=== PATIENT | female | born 1965 | race Caucasian/White ===

== ENCOUNTER 2016-04-30 08:48 | Emergency (ER) | payer OTHER ==
--- NOTE | 2016-04-30 09:10 | ERNOTE ---
<Georgi Tran - Last Filed: 04/30/16 08:58> Abdominal HPI - General Chief Complaint: GI Bleed Time Seen by Provider: 04/30/16 08:56 Source: group home records Exam Limitations: clinical condition, physical impairment - Immun/Allergies/Home Medications Allergies/Adverse Reactions: Allergies No Known Allergies Allergy (Unverified 04/30/16 09:01) Home Medications: HOME MEDICATIONS Albuterol Sulfate/Ipratropium [Duoneb 2.5-0.5MG/3ML Soln] 3 ml IH QID 04/30/16 [ Last Taken Unknown] Amitriptyline HCl [Elavil] 10 mg PO HS 04/30/16 [Last Taken Unknown] Fluticasone Propionate [24 Hour Allergy Relief] 15.8 ml NS DAILY 04/30/16 [Last Taken Unknown] Levothyroxine Sodium [Synthroid] 50 mcg PO DAILY 04/30/16 [Last Taken Unknown] Metoclopramide HCl [Reglan] 10 mg PO QID 04/30/16 [Last Taken Unknown] Omeprazole [Prilosec] 4 mg PO DAILY 04/30/16 [Last Taken Unknown] Phentermine HCl [Adipex-P] 37.5 mg PO DAILY 04/30/16 [Last Taken Unknown] Potassium Chloride [Potassium Chloride 40 meq/15ml Liquid] 20 meq PO DAILY 04/30 [Last Taken Unknown] Tizanidine HCl 2 mg PO QID PRN 04/30/16 [Last Taken Unknown] - History of Present Illness Narrative: Pt brought over from [facility] with report of purple gastric contents from G- tube this am. contents tested pos on gastrocult. Staff report that she has been less responsive than usual over the past few days. Review of Systems - Review of Systems Constitutional: Absent: recent illness, fever - but has had a slightly elevated temp around 99 EYE: Present: no symptoms reported ENT: Present: no symptoms reported Respiratory: Absent: shortness of breath, cough Cardiology: Present: no symptoms reported Gastrointestinal/Abdominal: Present: other - Delayed emptying lately on tube feedings and some feedings have been delayed by 3 hours due to residual. Genitourinary: Present: no symptoms reported Musculoskeletal: Present: no symptoms reported Skin: Present: no symptoms reported Neurological: Present: pre-existing deficit - some decrease in responsiveness although her baseline is low nodding and shaking head for answers Endocrine: Present: no symptoms reported Hematologic/Lymphatic: Present: no symptoms reported Psych: Present: no symptoms reported ED Progress - Transfer of Care Physician Sign Out: Georgi Tran Receiving Physician: Darleen Calixto Pending Results: Labs, X-ray results Expected Disposition: Discharge Departure - Departure Clinical Impression: Gastroenteritis Disposition: [facility] Condition: Fair Referrals: Jordin Sharp MD [Primary Care Provider] - <Darleen Calixto - Last Filed: 04/30/16 11:15> Abdominal HPI - General Source: group home records Exam Limitations: physical impairment Review of Systems - Narrative Narrative: unable to obtain from patient as patient is non verbal - Patient's Past Medical History Patient History - Medical: Anemia, Other - muscular dystrophy with quadriplegia , PEG tube Patient History - Cardiac/Respiratory: Atrial Fibrillation, Other - chronic respiratory failure on ventilator Patient History - Surgical Procedures: Pacemaker, Other - Gtube - Social History Living Situations: group home Does anyone smoke in the home?: No Physical Exam - Physical Exam General Appearance: Present: wd/wn, alert, no apparent distress, other - non verbal, opens eyes when talked to Respiratory: Present: no respiratory distress, normal breath sounds, no accessory muscle use, lungs clear Cardiovascular/Chest: Present: regular rate, rhythm, no murmur Gastrointestinal/Abdominal: Present: normal bowel sounds, soft, distended Extremity Exam: Present: no edema Neurological Exam: Present: alert Skin Exam: Present: normal color, warm/dry ED Progress - Results and Orders Patient's Lab Results:: I have reviewed the patient's lab results. - Vital Signs Patient's Vital Signs:: I have reviewed the patient's vital signs. Vital Signs: Vital Signs 04/30/16 08:52 Temperature 36.2 C L Pulse Rate 91 Respiratory 15 Rate Blood Pressure 100/72 O2 Sat by Pulse 96 Oximetry - X-Ray X-Ray #1 X-Ray: abdomen - abnormal gas pattern, no free air Interpretation: Reviewed by me - Progress/Reassessment Progress Note-Subjective: 04/30/16 10:00 patient had large stool in ER, per group home had increased stool frequency in group home, also multiple cases of gastroenteritis in group home 04/30/16 11:00 discussed with katelyn Pulido to send back to [place], gastroenteritis diagnosis
[2016-04-30 09:20] LABS: Hematocrit 41.2 % (37.0-47.0); Hemoglobin 13.4 gm/dL (12.5-16.0); Mean Cell Volume 97.6 fl (78-100); Mean Corpuscular Hemoglobin 31.8 pg (27-31); Mean Corpuscular Hgb Conc 32.5 g/dl (32-36); Mean Platelet Volume 9.7 fl (6.0-9.5); Neutrophil # 3.6 K/mm3 (1.3-6.0); Neutrophil % 66.2 % (42-75.0); Platelet Count 196 K/mm3 (150-450); Red Blood Count 4.22 M/mm3 (4.2-5.4); Red Cell Distribution Width 13.2 % (11.5-14.0); White Blood Count 5.4 K/mm3 (4.0-10.5)
[2016-04-30 09:42] LABS: Albumin * 3.3 gm/dl (3.4-5.0); Anion Gap 16.1 mmol/L (6.8-13.8); BUN/Creatinine Ratio 29.8 (9.0-21.6); Bilirubin, Total 0.5 mg/dL (0.0-1.1); Ca. Corrected For Albumin 9.5 mg/dL (8.4-10.2); Calcium * 9.3 mg/dL (7.9-10.9); Carbon Dioxide 21.4 mmol/L (24-32.6); Potassium 3.5 mmol/L (3.4-4.6); Total Protein 7.1 gm/dL (6.2-8.2)
[2016-04-30 10:27] LABS: Bacteria Many; White Blood Count None Seen; Yeast Few
[2016-04-30 10:49] VITALS: BP 101/63
== END 2016-04-30 12:14 ==
LOC: SUPCPDRO 08:48 → ER 08:48
DX: K52.9 Noninfective gastroenteritis and colitis, unspecified (principal); Z95.0 Presence of cardiac pacemaker

== ENCOUNTER 2016-12-24 09:40 | Emergency (ER) | payer OTHER ==
[2016-12-24] MEDS ORDERED: ACETAMINOPHEN 650 MG SUPP.RECT RC ONE (10:13)
--- NOTE | 2016-12-24 10:16 | ERNOTE ---
Abdominal HPI - Narrative Date of Service: 12/24/16 - General Chief Complaint: Abdominal Pain Time Seen by Provider: 12/24/16 09:56 Source: patient Exam Limitations: no limitations - Immun/Allergies/Home Medications Immunizatons: IMMUNIZATION HX Immunizations Up to Date Yes History of Influenza Vaccine Yes Hx Pneumococcal Vaccination Yes Allergies/Adverse Reactions: Allergies No Known Allergies Allergy (Verified 12/24/16 09:56) Home Medications: HOME MEDICATIONS Albuterol Sulfate/Ipratropium [Duoneb 2.5-0.5MG/3ML Soln] 3 ml IH QID 04/30/16 [ Last Taken Unknown] Amitriptyline HCl [Elavil] 10 mg PO HS 04/30/16 [Last Taken Unknown] Levothyroxine Sodium [Synthroid] 50 mcg PO DAILY 04/30/16 [Last Taken Unknown] Metoclopramide HCl [Reglan] 10 mg PO TID 04/30/16 [Last Taken Unknown] Omeprazole [Prilosec] 40 mg PO DAILY 04/30/16 [Last Taken Unknown] Phentermine HCl [Adipex-P] 37.5 mg PO DAILY 04/30/16 [Last Taken Unknown] Potassium Chloride [Potassium Chloride 40 meq/15ml Liquid] 20 meq PO DAILY 04/30 [Last Taken Unknown] tiZANidine HCL [Tizanidine HCl] 2 mg PO TID 04/30/16 [Last Taken Unknown] Armodafinil 50 mg PO DAILY 12/24/16 [Last Taken Unknown] Escitalopram Oxalate [Lexapro] 5 mg PO DAILY 12/24/16 [Last Taken Unknown] Fluticasone Propionate [Flonase] 2 spray NS DAILY 12/24/16 [Last Taken Unknown] Glycopyrrolate [Robinul] 1 mg PO TID 12/24/16 [Last Taken Unknown] Sulfamethoxazole/Trimethoprim [Sulfatrim Pediatric Suspension] 20 ml PO BID [Last Taken Unknown] - History of Present Illness Narrative: Pt. comes in from [facility] with c/o abdominal pain and bloating for two days and diarrhea that is worsening since onset. Pt. is responsive and alert at detention but is not verbal and is ventilator dependent and is contracted and has very little mobility. Here pt. is minimally responsive and only opens her eyes for 1-5 seconds after sternal rubbing. Review of Systems - Review of Systems Constitutional: Present: fever. Absent: weakness, fatigue, malaise EYE: Present: no symptoms reported ENT: Present: no symptoms reported Respiratory: Present: no symptoms reported. Absent: shortness of breath, cough , wheezing Cardiology: Present: no symptoms reported. Absent: chest pain, palpitations, edema Gastrointestinal/Abdominal: Present: diarrhea, abdominal pain, other - bloating. Absent: nausea, vomiting Genitourinary: Present: no symptoms reported Musculoskeletal: Present: other - preexisting contractures in all extremeties. Absent: back pain, joint pain Skin: Present: no symptoms reported. Absent: rash, change in color Neurological: Present: pre-existing deficit - resposive alerty but nonverbal and non mobile. Absent: headache, dizziness/light-headedness, numbness, tingling Hematologic/Lymphatic: Present: easy bruising. Absent: easy bleeding, swollen glands - Patient's Past Medical History Patient History - Medical: Anemia, Other Patient History - Cardiac/Respiratory: Atrial Fibrillation Patient History - Cancer: No Hx of Cancer Patient History - Surgical Procedures: Pacemaker, Other Patient History - Other: None LMP (females 10-50): Menopausal - Social History Living Situations: detention Abuse History: No History of abuse Psych History: No pertinent hx Does anyone smoke in the home?: No Smoking Status: Unknown if ever smoked Alcohol Use: none Drug Use: none - Immunizations Immunizations Up to Date: Yes Hx Pneumococcal Vaccination: Yes History of Influenza Vaccine: Yes Physical Exam - Physical Exam General Appearance: Present: wd/wn, no apparent distress, lethargic Head Exam: Present: normal inspection, no evidence of injury Eye Exam: Normal inspection: bilateral, EOMI: bilateral, Abnormal pupil: bilateral - sluggish 5 mm Ears, Nose, Throat: Present: normal pharynx, dry mucous membranes Neck: Present: normal inspection, nontender. Absent: lymphadenopathy (R), lymphadenopathy (L) Respiratory: Present: no respiratory distress, normal breath sounds, no accessory muscle use, chest nontender, lungs clear Cardiovascular/Chest: Present: no murmur, tachycardia Peripheral Pulses: N=norm/S=strong/W=weak/B=bound/A=absent: Carotid (R): Strong , Carotid (L): Strong, Radial (R): Weak, Radial (L): Weak, Femoral (R): Strong, Femoral (L): Strong, Dorsalis-pedis (R): Weak, Dorsalis-pedis (L): Weak Gastrointestinal/Abdominal: Present: nontender, abnormal bowel sounds - hypoactive tympanic, distended. Absent: guarding, rebound, McBurney sign, Obturator sign, Crow sign, Psoas sign, mass, hernia, hepatomegaly Back Exam: Present: normal inspection, normal range of motion, no CVA tenderness , no vertebral tenderness Extremity Exam: Present: normal inspection, non-tender, normal range of motion, no edema Neurological Exam: Present: other - unable to test ACS 6 Skin Exam: Present: warm/dry, pallor, other - mottled BLE ED Progress - Date and Time Seen: Date and Time: 12/24/16 10:14 Pt. minimally responsive with mottling and tympanic bowel sounds. Pt. on chronic abx for UTIs and pneumonia recently. Feel that pt. is at risk for MSOD and sepsis. Differential diagnosis include C-diff, resp failure, acute on chronic, end stage organ dysfunction, all likely secondary to pt. underlying severe MD. 12/24/16 12:38 Pt. more responsive at this time after fluid bolus. Called Dr Patel to discuss and left message. 12/24/16 13:[address] Patel and she feels that as pt. is back to baseline that she can be discharged back to [facility] and she will send over ordered to change abx to impenem and change pt. free water and send further orders to [facility]. - Results and Orders Patient's Lab Results:: I have reviewed the patient's lab results. - Vital Signs Patient's Vital Signs:: I have reviewed the patient's vital signs. Vital Signs: Vital Signs 12/24/16 09:45 Temperature 37.8 C H Pulse Rate 105 H Respiratory 16 Rate Blood Pressure 116/72 - EKG EKG: NSR, RBBB EKG read: Reviewed by me EKG Comments: Interp by Dr Hutchinson - X-Ray X-Ray #1 X-Ray: chest Interpretation: Reviewed by me X-ray Comments: no acute consolidation tracheostomy tube present and in good placement X-Ray #2 X-Ray: abdomen Interpretation: Reviewed by me X-ray Comments: no obstuctive pattern but with scattered air fluid levels indicative of colitis - Progress/Reassessment Chief Complaint: Abdominal Pain Departure - Departure Clinical Impression: Gastroenteritis, Colitis, Dehydration Disposition: [facility] Condition: Good
[2016-12-24] MEDS ORDERED: ACETAMINOPHEN 650 MG SUPP.RECT ONE (10:26)
[2016-12-24] MEDS: NORMAL SALINE 1,000 ML IV SCH ×2 (10:27→13:12)
[2016-12-24 10:30] LABS: Hemoglobin 11.6 gm/dL (12.5-16.0); Mean Cell Volume 94.2 fl (78-100); Mean Corpuscular Hemoglobin 30.4 pg (27-31); Mean Corpuscular Hgb Conc 32.2 g/dl (32-36); Mean Platelet Volume 9.8 fl (6.0-9.5); Neutrophil # 9.7 K/mm3 (1.3-6.0); Neutrophil % 84.1 % (42-75.0); Platelet Count 264 K/mm3 (150-450); Red Blood Count 3.82 M/mm3 (4.2-5.4); Red Cell Distribution Width 14.4 % (11.5-14.0); White Blood Count 11.6 K/mm3 (4.0-10.5)
[2016-12-24 10:47] LABS: Urine Bilirubin Negative (NEGATIVE); Urine Ketone Negative (NEGATIVE); Urine Nitrite Negative (NEGATIVE); Urine Protein Negative (NEGATIVE); Urine Specific Gravity <=1.005 SP.GR. (1.005-1.010); Urine Urobilinogen Normal (NORMAL); Urine pH 5.5 pH (5.0-7.0)
[2016-12-24 10:53] LABS: Urine Appearance Clear; Urine Bacteria None Seen; Urine Blood 5 /ul (NEGATIVE); Urine Color Yellow; Urine RBC None Seen /hpf (0-5); Urine WBC None Seen /hpf (0-5)
[2016-12-24 10:54] LABS: Urine Amorphous Sediment Moderate - 2+ (NONE-FEW)
[2016-12-24 11:00] LABS: Albumin * 3.1 gm/dl (3.4-5.0); Anion Gap 17.1 mmol/L (6.8-13.8); BUN/Creatinine Ratio 24.6 (9.0-21.6); Bilirubin, Total 0.4 mg/dL (0.0-1.1); Ca. Corrected For Albumin 10.1 mg/dL (8.4-10.2); Calcium * 9.7 mg/dL (7.9-10.9); Carbon Dioxide 22.6 mmol/L (24-32.6); Potassium 3.7 mmol/L (3.4-4.6); Total Protein 7.6 gm/dL (6.2-8.2)
[2016-12-24 13:10] VITALS: BP 113/70
== END 2016-12-24 14:12 ==
LOC: ER 09:40
PROC: 4A033R1 Measurement of Arterial Saturation, Peripheral, Percutaneous Approach (ICD-10-PCS; principal; 2016-12-24)
DX: E86.0 Dehydration (principal); K52.9 Noninfective gastroenteritis and colitis, unspecified; Z95.0 Presence of cardiac pacemaker

== ENCOUNTER 2017-01-18 17:54 | Emergency (ER) | payer OTHER ==
[2017-01-18 18:25] LABS: Hematocrit 36.4 % (37.0-47.0); Hemoglobin 11.6 gm/dL (12.5-16.0); Mean Cell Volume 95.3 fl (78-100); Mean Corpuscular Hemoglobin 30.4 pg (27-31); Mean Corpuscular Hgb Conc 31.9 g/dl (32-36); Mean Platelet Volume 9.9 fl (6.0-9.5); Neutrophil # 6.1 K/mm3 (1.3-6.0); Neutrophil % 69.8 % (42-75.0); Platelet Count 293 K/mm3 (150-450); Red Blood Count 3.82 M/mm3 (4.2-5.4); Red Cell Distribution Width 14.6 % (11.5-14.0); White Blood Count 8.7 K/mm3 (4.0-10.5)
[2017-01-18 18:40] LABS: Albumin * 3.3 gm/dl (3.4-5.0); Anion Gap 15.2 mmol/L (6.8-13.8); BUN/Creatinine Ratio 29.8 (9.0-21.6); Bilirubin, Total 0.3 mg/dL (0.0-1.1); Ca. Corrected For Albumin 9.6 mg/dL (8.4-10.2); Calcium * 9.4 mg/dL (7.9-10.9); Carbon Dioxide 26.1 mmol/L (24-32.6); Potassium 4.3 mmol/L (3.4-4.6)
--- NOTE | 2017-01-18 19:01 | ERNOTE ---
Dyspnea - General Time Seen by Provider: 01/18/17 18:37 Source: alf records Exam Limitations: clinical condition - Immun/Allergies/Home Medications Immunizations: IMMUNIZATION HX Immunizations Up to Date Yes History of Influenza Vaccine Yes Hx Pneumococcal Vaccination Yes Allergies/Adverse Reactions: Allergies No Known Allergies Allergy (Verified 01/18/17 18:05) Home Medications: HOME MEDICATIONS Albuterol Sulfate/Ipratropium [Duoneb 2.5-0.5MG/3ML Soln] 3 ml IH QID 04/30/16 [ Last Taken Unknown] Amitriptyline HCl [Elavil] 10 mg PO HS 04/30/16 [Last Taken Unknown] Levothyroxine Sodium [Synthroid] 50 mcg PO DAILY 04/30/16 [Last Taken Unknown] Metoclopramide HCl [Reglan] 10 mg PO TID 04/30/16 [Last Taken Unknown] Omeprazole [Prilosec] 40 mg PO DAILY 04/30/16 [Last Taken Unknown] Phentermine HCl [Adipex-P] 37.5 mg PO DAILY 04/30/16 [Last Taken Unknown] Potassium Chloride [Potassium Chloride 40 meq/15ml Liquid] 20 meq PO DAILY 04/30 [Last Taken Unknown] tiZANidine HCL [Tizanidine HCl] 2 mg PO TID 04/30/16 [Last Taken Unknown] Armodafinil 50 mg PO DAILY 12/24/16 [Last Taken Unknown] Escitalopram Oxalate [Lexapro] 5 mg PO DAILY 12/24/16 [Last Taken Unknown] Fluticasone Propionate [Flonase] 2 spray NS DAILY 12/24/16 [Last Taken Unknown] Glycopyrrolate [Robinul] 1 mg PO TID 12/24/16 [Last Taken Unknown] Sulfamethoxazole/Trimethoprim [Sulfatrim Pediatric Suspension] 20 ml PO BID [Last Taken Unknown] - History of Present Illness Narrative: Patient is a alf patient on a vent for muscular dystrophy. Today when suctioning through ET tube the respiratory therapist noticed what appeared to be PEG feeding, the patient was also reported to have a low grade temperature. no history is available from the patient as she is nonverbal and on a vent Review of Systems - Narrative Narrative: unable to obtain - Patient's Past Medical History Patient History - Medical: Anemia, Other - muscular dystrophy Patient History - Cardiac/Respiratory: Atrial Fibrillation, CPAP/BiPAP Home Use , Other Patient History - Cancer: No Hx of Cancer Patient History - Surgical Procedures: Pacemaker, Other Patient History - Other: None - Social History Living Situations: alf Abuse History: No History of abuse Psych History: No pertinent hx Does anyone smoke in the home?: No Smoking Status: Smoker, status unknown Alcohol Use: none Drug Use: none - Immunizations Immunizations Up to Date: Yes Hx Pneumococcal Vaccination: Yes History of Influenza Vaccine: Yes Physical Exam - Physical Exam General Appearance: Present: wd/wn, alert, no apparent distress Neck: Present: other - trach with vent Respiratory: Present: no respiratory distress, normal breath sounds, lungs clear. Absent: decreased breath sounds Cardiovascular/Chest: Present: regular rate, rhythm, no murmur Gastrointestinal/Abdominal: Present: normal bowel sounds, nondistended, soft, other - PEG tube in place Neurological Exam: Present: other - sleeping Skin Exam: Present: normal color, warm/dry ED Progress - Results and Orders Patient's Lab Results:: I have reviewed the patient's lab results. - Vital Signs Patient's Vital Signs:: I have reviewed the patient's vital signs. Vital Signs: Vital Signs 01/18/17 01/18/17 17:58 18:12 Temperature 36.9 C Pulse Rate 88 89 Respiratory 16 Rate Blood Pressure 105/62 O2 Sat by Pulse 92 Oximetry - X-Ray X-Ray #1 X-Ray: chest - no acute changes Interpretation: Interp. by me - Progress/Reassessment Chief Complaint: Dyspnea Departure Clinical Impression: Muscular dystrophy - Departure Disposition: [facility] Condition: Stable
[2017-01-18 19:31] VITALS: BP 108/64
== END 2017-01-18 19:44 ==
LOC: ER 17:54
DX: G71.0 Muscular dystrophy (principal); D64.9 Anemia, unspecified; I48.91 Unspecified atrial fibrillation; Z79.01 Long term (current) use of anticoagulants

== ENCOUNTER 2017-02-28 20:16 | Emergency (ER) | payer OTHER ==
--- NOTE | 2017-02-28 20:46 | ERNOTE ---
Medical Problem HPI - Narrative Date of Service: 02/28/17 - General Chief Complaint: Fever Time Seen by Provider: 02/28/17 20:31 Source: RN/MD, other - old records and care home records. Exam Limitations: no limitations - Immun/Allergies/Home Medications Immunizations: IMMUNIZATION HX Immunizations Up to Date Yes History of Influenza Vaccine Yes Hx Pneumococcal Vaccination Yes Allergies/Adverse Reactions: Allergies No Known Allergies Allergy (Verified 02/28/17 20:31) Home Medications: HOME MEDICATIONS Acetaminophen 20.31 ml PO DAILY 02/28/17 [Last Taken Unknown] Acetylcysteine [Mucomyst 20%] 3 ml NEB Q8H 02/28/17 [Last Taken Unknown] Albuterol Sulfate [Albuterol Sulfate 0.63 MG/3ML] 0.63 mg IH PRN 02/28/17 [Last Taken Unknown] Amitriptyline HCl [Elavil] 10 mg PO HS 02/28/17 [Last Taken Unknown] Armodafinil 100 mg PO 02/28/17 [Last Taken Unknown] Cyclobenzaprine HCl [Flexeril] 10 mg PO TID PRN 02/28/17 [Last Taken Unknown] Escitalopram Oxalate [Lexapro] 5 mg PO HS 02/28/17 [Last Taken Unknown] Fluticasone Propionate [Flonase Allergy Relief] 15.8 ml NS 02/28/17 [Last Taken Unknown] Gentamicin Sulfate [Gentamicin] 125 mg IM DAILY 02/28/17 [Last Taken 02/28/17] Glycopyrrolate [Cuvposa] 1 mg PO 02/28/17 [Last Taken Unknown] Ipratropium/Albuterol Sulfate [Iprat-Albut 0.5-3(2.5) mg/3 ml] 3 ml IH Q4H 02/28 [Last Taken Unknown] Levothyroxine Sodium [Levo-T] 50 mcg PO DAILY 02/28/17 [Last Taken Unknown] Metoclopramide HCl [Reglan] 10 mg PO TID 02/28/17 [Last Taken Unknown] Nutritional Supplement [Osmolite 1.2 [place]] 02/28/17 [Last Taken Unknown] Nystatin 15 gm TP 02/28/17 [Last Taken Unknown] Omeprazole [Prilosec] 40 mg PO DAILY 02/28/17 [Last Taken Unknown] Potassium Chloride 20 meq PO 02/28/17 [Last Taken Unknown] Sulfamethoxazole/Trimethoprim [Bactrim Ds] 1 tab PO BID #20 tab 02/28/17 [Last Taken Unknown] guaiFENesin [Mucus Relief] 400 mg PO TID 02/28/17 [Last Taken Unknown] l Acidophil/B Lactis/B Longum [Florajen3 Capsule] 460 mg PO 02/28/17 [Last Taken Unknown] - History of Present History Narrative: This is a 51-year-old female with a history of muscular dystrophy who has been noted to have fever at 6 PM earlier on today. Patient was given Tylenol and her temperature now is 99. She has been fighting a respiratory infection and when asked she states that she has chest pain with coughing. Review of Systems - Review of Systems Constitutional: Present: fever EYE: Present: no symptoms reported ENT: Present: no symptoms reported Respiratory: Present: cough Cardiology: Present: no symptoms reported Gastrointestinal/Abdominal: Present: no symptoms reported Genitourinary: Present: no symptoms reported Musculoskeletal: Present: no symptoms reported Skin: Present: no symptoms reported - Patient's Past Medical History Patient History - Medical: Anemia, UTI'S, Other Patient History - Cardiac/Respiratory: Atrial Fibrillation, CPAP/BiPAP Home Use , Other Patient History - Cancer: No Hx of Cancer Patient History - Surgical Procedures: Pacemaker, Other Patient History - Other: None - Social History Abuse History: No History of abuse Psych History: No pertinent hx - Immunizations Immunizations Up to Date: Yes Hx Pneumococcal Vaccination: Yes History of Influenza Vaccine: Yes Physical Exam - Physical Exam General Appearance: Present: wd/wn, other - patient appears somnolent she has a tracheostomy and she is on the vent however she can blink her answers to me and nod and shake her head and Medication is not an issue at this time. Head Exam: Present: normal inspection, no evidence of injury Ears, Nose, Throat: Present: normal ENT inspection, other - patient has a tracheostomy Neck: Present: normal inspection, nontender Respiratory: Present: no respiratory distress, no accessory muscle use, chest nontender, other - I hear some decreased breath sounds at both bases I don't hear any wheezes rales or rhonchi at this time Cardiovascular/Chest: Present: regular rate, rhythm, no murmur, normal peripheral pulses Gastrointestinal/Abdominal: Present: normal bowel sounds, nontender, nondistended, soft, no organomegaly Extremity Exam: Present: other - unable to examine this patient for range of motion as she does not move her extremities she is quadriplegic and she is on a vent ED Progress - Results and Orders Patient's Lab Results:: I have reviewed the patient's lab results. - Vital Signs Patient's Vital Signs:: I have reviewed the patient's vital signs. Vital Signs: Vital Signs 02/28/17 20:19 Temperature 37.3 C Pulse Rate 88 Respiratory 16 Rate Blood Pressure 102/64 O2 Sat by Pulse 94 Oximetry - X-Ray X-Ray #1 X-Ray: chest - Progress/Reassessment Chief Complaint: Fever Plan - Plan Plan: This patient is here because she had one episode of fever at 1800 today. Her lungs are clear I do not see anything on x-ray her pro-calcitonin is negative her white count is slightly elevated at 10.7 however her urine reveals bacteria and this is a catheterized specimen therefore this patient will be treated for UTI and discharged. Departure Clinical Impression: UTI (urinary tract infection) Qualifiers: Urinary tract infection type: site unspecified Hematuria presence: with hematuria Qualified Code(s): N39.0 - Urinary tract infection, site not specified ; R31.9 - Hematuria, unspecified; R31.9 - Hematuria, unspecified - Departure Disposition: Home self-care Condition: Good Additional Instructions: Based on my examination and evaluation test results an assessment you have a urinary tract infection. You were given Levaquin 500 mg in our ER and you are to start Bactrim double strength 1 tablet every 12 hours by mouth starting tomorrow and for the next 10 days please follow-up with your regular doctor. Prescriptions: Sulfamethoxazole/Trimethoprim [Bactrim Ds] 1 tab PO BID #20 tab
[2017-02-28 20:48] LABS: Hematocrit 33.3 % (37.0-47.0); Hemoglobin 10.7 gm/dL (12.5-16.0); Mean Cell Volume 95.1 fl (78-100); Mean Corpuscular Hemoglobin 30.6 pg (27-31); Mean Corpuscular Hgb Conc 32.1 g/dl (32-36); Mean Platelet Volume 9.2 fl (6.0-9.5); Neutrophil # 8.7 K/mm3 (1.3-6.0); Neutrophil % 80.9 % (42-75.0); Platelet Count 252 K/mm3 (150-450); Red Cell Distribution Width 14.8 % (11.5-14.0); White Blood Count 10.7 K/mm3 (4.0-10.5)
[2017-02-28 21:01] LABS: Anion Gap 14.1 mmol/L (6.8-13.8); BUN/Creatinine Ratio 20.3 (9.0-21.6); Bilirubin, Total 0.3 mg/dL (0.0-1.1); Ca. Corrected For Albumin 9.4 mg/dL (8.4-10.2); Calcium * 8.9 mg/dL (7.9-10.9); Carbon Dioxide 24.6 mmol/L (24-32.6); Potassium 3.7 mmol/L (3.4-4.6); Total Protein 7.3 gm/dL (6.2-8.2)
[2017-02-28] MEDS ORDERED: NORMAL SALINE 1,000 ML IV ONE (21:13)
[2017-02-28 21:39] LABS: Urine Appearance Slightly Cloudy; Urine Bilirubin Negative (NEGATIVE); Urine Color Yellow; Urine Ketone Negative (NEGATIVE)
[2017-02-28 21:40] LABS: Urine Blood 10 /ul (NEGATIVE); Urine Nitrite Negative (NEGATIVE); Urine Protein Negative (NEGATIVE); Urine Urobilinogen Normal (NORMAL); Urine pH 6.5 pH (5.0-7.0)
[2017-02-28 21:42] LABS: Urine Bacteria 1+; Urine RBC 0-5 /hpf (0-5)
[2017-02-28] MEDS ORDERED: LEVOFLOXACIN/D5W 500 MG/100 ML BAG IV SCH (22:00)
[2017-02-28 23:49] VITALS: BP 111/65
== END 2017-02-28 23:50 ==
LOC: ER 20:16
DX: N39.0 Urinary tract infection, site not specified (principal); N31.9 Neuromuscular dysfunction of bladder, unspecified; D64.9 Anemia, unspecified; I48.91 Unspecified atrial fibrillation; Z79.01 Long term (current) use of anticoagulants

== ENCOUNTER 2019-07-06 09:35 | Inpatient (IN) ==
[2019-07-06] MEDS ORDERED: NORMAL SALINE 1,000 ML IV ONE (09:55)
[2019-07-06 10:12] LABS: Urine Bilirubin Negative (NEGATIVE); Urine Ketone Negative (NEGATIVE); Urine Nitrite Negative (NEGATIVE); Urine Protein Negative (NEGATIVE); Urine Specific Gravity <=1.005 SP.GR. (1.005-1.010); Urine Urobilinogen Normal (NORMAL)
[2019-07-06 10:20] LABS: Hematocrit 33.6 % (37.0-47.0); Mean Corpuscular Hemoglobin 31.4 pg (27-31); Mean Corpuscular Hgb Conc 32.7 g/dl (32-36); Mean Platelet Volume 11.9 fl (8-12.5); Neutrophil # 6.6 K/mm3 (1.3-6.0); Neutrophil % 77.8 % (42-75.0); Platelet Count 116 K/mm3 (150-450); Red Cell Distribution Width 14.3 % (11.5-14.0); White Blood Count 8.5 K/mm3 (4.0-10.5)
[2019-07-06 10:30] LABS: Urine Appearance Clear (CLEAR); Urine Blood 5 /ul (NEGATIVE); Urine Color Yellow
[2019-07-06 10:31] LABS: Urine Bacteria 2+; Urine RBC TRACE /hpf (0-5)
[2019-07-06 10:33] LABS: ALT 31 U/L (19-67); AST 60 U/L (0-48); Albumin * 2.3 gm/dl (3.4-5.0); Alkaline Phosphatase * 135 U/L (50-170); Anion Gap 17.8 mmol/L (6.8-13.8); BUN/Creatinine Ratio 30.2 (9.0-21.6); Bilirubin, Total 0.8 mg/dL (0.0-1.1); Blood Urea Nitrogen 29 mg/dL (3-23); Ca. Corrected For Albumin 10.5 mg/dL (8.4-10.2); Calcium * 9.5 mg/dL (7.9-10.9); Carbon Dioxide 23.2 mmol/L (24-32.6); Chloride 100 mmol/L (97-106); Glucose * 134 mg/dL (70-110); Sodium 137 mmol/L (132-142); Total Protein 7.7 gm/dL (6.2-8.2)
--- NOTE | 2019-07-06 12:49 | ERNOTE ---
Medical Problem HPI - Narrative Date of Service: 07/06/19 - General Chief Complaint: Fever Time Seen by Provider: 07/06/19 09:49 Source: EMS, skilled nursing records Exam Limitations: no limitations - Immun/Allergies/Home Medications Immunizations: IMMUNIZATION HX Immunizations Up to Date Yes History of Influenza Vaccine Yes Hx Pneumococcal Vaccination Yes Allergies/Adverse Reactions: Allergies No Known Allergies Allergy (Verified 07/06/19 09:39) Home Medications: HOME MEDICATIONS Acetaminophen 20.31 ml PO DAILY 02/28/17 [Last Taken Unknown] Albuterol Sulfate [Albuterol Sulfate 0.63 MG/3ML] 0.63 mg IH PRN 02/28/17 [Last Taken Unknown] l Acidophil/B Lactis/B Longum [Florajen3 Capsule] 460 mg PO DAILY 02/28/17 [Last Taken Unknown] amino acids-protein hydrolys 15 gram-100 kcal/30 mL oral liquid See Rx Instructions PO DAILY ml 11/26/17 [Last Taken Unknown] armodafinil 200 mg tablet 100 mg PO QAM tab 11/26/17 [Last Taken Unknown] chlorhexidine gluconate 0.12 % mouthwash 15 ml MUCOUS MEMBRANE BID 11/26/17 [Last Taken Unknown] escitalopram oxalate 5 mg tablet 2.5 mg PO DAILY tab 11/26/17 [Last Taken Unknown] gemfibrozil 600 mg tablet 600 mg PO BID 11/26/17 [Last Taken Unknown] glycopyrrolate 1 mg tablet 1 mg PO TID 11/26/17 [Last Taken Unknown] ipratropium 0.5 mg-albuterol 3 mg (2.5 mg base)/3 mL nebulization soln 3 ml IH Q4H 11/26/17 [Last Taken Unknown] polyvinyl alcohol 1.4 % eye drops 1 drp OP TID-QID PRN 11/26/17 [Last Taken Unknown] cetirizine 10 mg tablet 10 mg FEEDING TUBE DAILY 06/04/18 [Last Taken Unknown] cyclobenzaprine 10 mg tablet 10 mg FEEDING TUBE TID 06/04/18 [Last Taken Unknown] levothyroxine 50 mcg capsule 50 mcg FEEDING TUBE DAILY 06/04/18 [Last Taken Unknown] metoclopramide HCl 10 mg tablet 10 mg FEEDING TUBE TID 06/04/18 [Last Taken Unk nown] omeprazole magnesium 2.5 mg oral suspension,delayed release 40 mg FEEDING TUBE DAILY 06/04/18 [Last Taken Unknown] polyethylene glycol 3350 17 gram/dose oral powder 1 dose FEEDING TUBE DAILY PRN g 06/04/18 [Last Taken Unknown] tizanidine 2 mg capsule 2 mg FEEDING TUBE TID 06/04/18 [Last Taken Unknown] banana [id number]. See Rx Instructions .ROUTE TID ea 07/21/18 [Last Taken Unknown] benzocaine 20 % topical aerosol 1 applic TP QID PRN 07/21/18 [Last Taken Unknown] fluticasone propionate 50 mcg/actuation nasal spray,suspension 2 spray LESIA BID g 07/21/18 [Last Taken Unknown] furosemide 40 mg tablet 40 mg FEEDING TUBE DAILY 07/21/18 [Last Taken Unknown] potassium chloride 40 mEq/15 mL oral liquid 40 meq PO DAILY 07/21/18 [Last Taken Unknown] zinc oxide 13 % topical cream 1 applic TP DAILY PRN 07/21/18 [Last Taken Unknown] acetaminophen 500 mg/15 mL oral liquid See Rx Instructions PO Q6H PRN ml 10/13/18 [Last Taken Unknown] acetylcysteine 200 mg/mL (20 %) solution 3 ml IH BID PRN ml 10/13/18 [Last Taken Unknown] acetylcysteine 200 mg/mL (20 %) solution 3 ml IH DAILY ml 10/13/18 [Last Taken Unknown] amitriptyline 10 mg tablet 10 mg PO DAILY 10/13/18 [Last Taken Unknown] calcium carbonate 200 mg calcium (500 mg) chewable tablet 400 mg PO TID PRN tab 10/13/18 [Last Taken Unknown] cholecalciferol (vitamin D3) 25 mcg (1,000 unit) tablet 1,000 unit PO DAILY 10/13/18 [Last Taken Unknown] guaifenesin 400 mg tablet 400 mg PO TID PRN tab 10/13/18 [Last Taken Unknown] sodium chloride 0.9 % for nebulization 3 ml IH DAILY ml 10/13/18 [Last Taken Unknown] Cranberry Fruit [Cranberry] 400 mg PO BID 07/06/19 [Last Taken Unknown] Meropenem 1 gm IV TID 07/06/19 [Last Taken Unknown] - History of Present History Narrative: patient presents from skilled nursing with three day duration of fever, has been tested multiple times for influenza, currently on mirapenum iv, fever has persisted patient is senior care vent patient for muscular dystrophy and remains a dnr Timing: constant, getting worse Severity: moderate Modifying Factors - (Improves): Present: other - nothing Modifying Factors - (Worsens): Present: other - nothing Review of Systems - Narrative Narrative: unable to obtain ros due to vegatative state - Review of Systems Constitutional: Present: See HPI Medical History (Last Reviewed 07/06/19 @ 11:27 by Celsa Oliva RN) long term resident (Chronic) Ventilator dependence (Chronic) Onset Date: ~01/17/1618/11 due to MD Recurrent UTI (Chronic) Onset Date: ~01/17/16 Quadriplegia (Chronic) Onset Date: Unknown Paroxysmal atrial fibrillation (Chronic) Onset Date: Unknown Paralytic strabismus (Chronic) Onset Date: Unknown Neuromuscular dysfunction of bladder, unspecified (Chronic) Onset Date: Unknown Muscular dystrophy (Chronic) Onset Date: ~01/17/16 myotonia. slowly declining. will never wean off vent and will continue to work on her contractures, but will be challenging Malnourished (Chronic) Onset Date: ~01/17/16 adjust PEG feeding as tolerated Hypothyroid (Chronic) Onset Date: ~07/28/16 Hypokalemia (Chronic) Onset Date: Unknown Chronic respiratory failure (Chronic) Onset Date: ~07/28/16 Normocytic anemia (Chronic) Onset Date: Unknown Sick sinus syndrome Onset Date: Unknown Surgical History: Surgical History (Last Reviewed 07/06/19 @ 11:27 by Celsa Oliva RN) S/P percutaneous endoscopic gastrostomy (PEG) tube placement (Chronic) Tracheostomy dependence (Chronic) Onset Date: ~01/17/16 PEG (percutaneous endoscopic gastrostomy) status Onset Date: ~01/17/16 Pacemaker Onset Date: Unknown Social History: (Last Reviewed 07/06/19 @ 11:27 by Celsa Oliva RN) Tobacco: Smoking Status: Never smoker Physical Exam - Physical Exam General Appearance: Present: other - patient unresponsive Head Exam: Present: normal inspection, no evidence of injury Ears, Nose, Throat: Present: dry mucous membranes Neck: Present: normal inspection, other - tracheostomy connect to anterior neck Respiratory: Present: decreased breath sounds, crackles, rales, rhonchi, other - mechanical ventilation Cardiovascular/Chest: Present: tachycardia Peripheral Pulses: N=norm/S=strong/W=weak/B=bound/A=absent: Carotid (R): Normal, Carotid (L): Normal, Radial (R): Normal, Radial (L): Normal, Femoral (R): Normal, Femoral (L): Normal, Dorsalis-pedis (R): Normal, Dorsalis-pedis (L): Normal Gastrointestinal/Abdominal: Present: normal bowel sounds, nontender, nondistended, no organomegaly, other - gastrosromy tube mid abdomen Back Exam: Present: normal inspection, normal range of motion, no CVA tenderness, no vertebral tenderness Extremity Exam: Present: normal except - - bilateral upper and lower extremity contractures Neurological Exam: Present: other - patient unresponsive to all but painful stimuli Skin Exam: Present: normal color, warm/dry Lymphatic Exam: Present: no adenopathy Progress - Date and Time Seen: Date and Time: 07/06/19 12:44 condition unchanged, dr moreno aevaluates and accepts patient - Results and Orders Patient's Lab Results:: I have reviewed the patient's lab results. - Vital Signs Patient's Vital Signs:: I have reviewed the patient's vital signs. Vital Signs: Vital Signs 07/06/19 09:52 07/06/19 10:30 07/06/19 11:00 Temperature 38.0 C Pulse Rate 124 H 115 H 110 H Respiratory Rate 24 H 18 18 Blood Pressure 115/75 105/67 98/60 O2 Sat by Pulse Oximetry 96 94 94 07/06/19 11:30 Temperature 37.0 C Pulse Rate 105 H Respiratory Rate 18 Blood Pressure 97/61 O2 Sat by Pulse Oximetry 95 - X-Ray X-Ray #1 X-Ray: chest Interpretation: Discd w/ radiologist - left lower lobe pneumonia - Progress/Reassessment Chief Complaint: Fever Progress:: Unchanged - Transfer of Care Expected Disposition: Admit Plan - Plan Plan: to admit to hospital. Departure Clinical Impression: Pneumonia - Departure Disposition: Short Term Hospital Inpatient Condition: Critical
[2019-07-06] MEDS ORDERED: PIPERACILLIN SODIUM/TAZOBACTAM 3.375 GM in DEXTROSE 5 % IN WATER 100 ML IV SCH ×2 (13:15)
[2019-07-06] MEDS ORDERED: VANCOMYCIN HCL 1 GM in DEXTROSE 5 % IN WATER 250 ML IV SCH ×2 (13:15)
--- NOTE | 2019-07-06 14:25 | HP ---
Chief Complaint - Chief Complaint Date of Service: 07/06/19 Time of Service: 12:24 Chief Complaint: fever for 3 days History of Present Illness: 53-year-old female with a past medical history of chronic respiratory failure with tracheostomy and ventilator dependent, muscular dystrophy, normocytic anemia, paralytic strabismus, paroxysmal atrial fibrillation, quadriplegia, recurrent UTI, sick sinus syndrome, status post pacemaker, status post PEG tube, tracheostomy dependent hypothyroidism and hypokalemia presents from prison with fevers for the past 3 days. She was placed on meropenem at the prison but continued to spike fevers. She was transferred to the emergency department. In the ER she was found to be tacky cardiac, fever of 38 C, no leukocytosis, lactic acid of 8, positive UA, influenza were negative. Chest x- ray positive for consolidation of the left lung base, effusion with atelectasis versus pneumonia. She is being admitted for ventilator associated pneumonia I will switch her antibiotics from meropenem to Zosyn and vancomycin. Medical History (Last Reviewed 07/06/19 @ 13:57 by Eugenio Real RN) correction resident (Chronic) Ventilator dependence (Chronic) Onset Date: ~01/17/16 24/ due to MD Recurrent UTI (Chronic) Onset Date: ~01/17/16 Quadriplegia (Chronic) Onset Date: Unknown Paroxysmal atrial fibrillation (Chronic) Onset Date: Unknown Paralytic strabismus (Chronic) Onset Date: Unknown Neuromuscular dysfunction of bladder, unspecified (Chronic) Onset Date: Unknown Muscular dystrophy (Chronic) Onset Date: ~01/17/16 myotonia. slowly declining. will never wean off vent and will continue to work on her contractures, but will be challenging Malnourished (Chronic) Onset Date: ~01/17/16 adjust PEG feeding as tolerated Hypothyroid (Chronic) Onset Date: ~07/28/16 Hypokalemia (Chronic) Onset Date: Unknown Chronic respiratory failure (Chronic) Onset Date: ~07/28/16 Normocytic anemia (Chronic) Onset Date: Unknown Sick sinus syndrome Onset Date: Unknown Surgical History: Surgical History (Last Reviewed 07/06/19 @ 13:57 by Eugenio Real RN) S/P percutaneous endoscopic gastrostomy (PEG) tube placement (Chronic) Tracheostomy dependence (Chronic) Onset Date: ~01/17/16 PEG (percutaneous endoscopic gastrostomy) status Onset Date: ~01/17/16 Pacemaker Onset Date: Unknown Family History: Family History (Last Updated 07/06/19 @ 16:24 by Kaylen Burk MD) Other Family history non-contributory Social History: (Last Reviewed 07/06/19 @ 13:57 by Eugenio Real RN) Tobacco: Smoking Status: Never smoker Review Of Systems (GEN) - Review of Systems Generalized/Overall Review: Present: Weakness, Fever Misc: All systems neg except as marked Immunizations: IMMUNIZATION HX Immunizations Up to Date Yes History of Influenza Vaccine Yes Hx Pneumococcal Vaccination Yes Allergies/Adverse Reactions: Allergies Allergy/AdvReac Type Severity Reaction Status Date / Time No Known Allergies Allergy Verified 07/06/19 13:57 Home Medications: HOME MEDICATIONS Acetaminophen 19.5 ml PEG DAILY 02/28/17 [Last Taken 07/04/19 11:00] armodafinil 200 mg tablet 100 mg PEG DAILY tab 11/26/17 [Last Taken 07/06/19 07:00] chlorhexidine gluconate 0.12 % mouthwash 15 ml MUCOUS MEMBRANE BID 11/26/17 [Last Taken 07/05/19 19:00] escitalopram oxalate 5 mg tablet 2.5 mg PEG DAILY tab 11/26/17 [Last Taken 07/06/19 07:00] gemfibrozil 600 mg tablet 600 mg PEG BID 11/26/17 [Last Taken 07/06/19 07:00] glycopyrrolate 1 mg tablet 1 mg PEG TID 11/26/17 [Last Taken 07/06/19 07:00] ipratropium 0.5 mg-albuterol 3 mg (2.5 mg base)/3 mL nebulization soln 3 ml IH Q4H 11/26/17 [Last Taken 07/06/19 06:00] cetirizine 10 mg tablet 10 mg PEG HS 06/04/18 [Last Taken 07/05/19 19:00] cyclobenzaprine 10 mg tablet 10 mg PEG TID 06/04/18 [Last Taken 07/06/19 07:00] levothyroxine 50 mcg capsule 50 mcg PEG .Q0400 06/04/18 [Last Taken 07/06/19 04:00] metoclopramide HCl 10 mg tablet 10 mg PEG TID 06/04/18 [Last Taken 07/06/19 07:00] omeprazole magnesium 2.5 mg oral suspension,delayed release 40 mg PEG DAILY 06/04/18 [Last Taken 07/06/19 07:00] polyethylene glycol 3350 17 gram/dose oral powder 1 dose PEG BID PRN g 06/04/18 [Last Taken Unknown] tizanidine 2 mg capsule 2 mg PEG TID 06/04/18 [Last Taken 07/06/19 07:00] fluticasone propionate 50 mcg/actuation nasal spray,suspension 1 spray LESIA BID g 07/21/18 [Last Taken 07/06/19 07:00] furosemide 40 mg tablet 40 mg PEG DAILY 07/21/18 [Last Taken 07/06/19 07:00] potassium chloride 40 mEq/15 mL oral liquid 15 ml PEG DAILY 07/21/18 [Last Taken 07/06/19 07:00] zinc oxide 13 % topical cream 1 applic TP DAILY PRN 07/21/18 [Last Taken 07/06/19] acetylcysteine 200 mg/mL (20 %) solution 3 ml IH BID PRN ml 10/13/18 [Last Taken Unknown] amitriptyline 10 mg tablet 10 mg PEG HS 10/13/18 [Last Taken 07/05/19 19:00] calcium carbonate 200 mg calcium (500 mg) chewable tablet 400 mg PEG TID PRN tab 10/13/18 [Last Taken Unknown] cholecalciferol (vitamin D3) 25 mcg (1,000 unit) tablet 1 tab PEG DAILY 10/13/18 [Last Taken 07/06/19 07:00] guaifenesin 400 mg tablet 400 mg PEG TID tab 10/13/18 [Last Taken 07/06/19 07:0 0] sodium chloride 0.9 % for nebulization 3 ml IH HS ml 10/13/18 [Last Taken 07/05/19 21:00] 0.9 % Sodium Chloride [Normal Saline Flush] 20 ml IV PRN PRN 07/06/19 [Last Taken Unknown] Acetaminophen [Pain Relief Adult] 19.5 ml PO Q6H PRN 07/06/19 [Last Taken 07/06/19 08:54] Albuterol Sulfate 2.5 mg INHALATION .Q2H PRN 07/06/19 [Last Taken Unknown] Amino Acids/Protein Hydrolys [Pro-Stat Liquid] 30 ml PEG DAILY 07/06/19 [Last Taken 07/06/19 07:00] Atropine Sulfate [Atropine 1% Ophthalmic Solution] 2 drp SUBLINGUAL .Q1H PRN 07/06/19 [Last Taken Unknown] Banana Flakes/Tos [Banatrol Plus] 1 ea PEG TID 07/06/19 [Last Taken 07/06/19 07:00] Cranberry Fruit [Cranberry] 400 mg PEG BID 07/06/19 [Last Taken 07/06/19 07:00] Heparin Sodium,Porcine/Pf [Heparin Flush 10 Units/ml Syr] 5 ml IV PRN PRN 07/05 [Last Taken Unknown] Meropenem 1 gm IV TID 07/06/19 [Last Taken 07/06/19 06:00] Polyvinyl Alcohol/Povidone/Pf [Refresh Classic Eye Drops] 1 ea OPHTHALMIC (EYE) .Q1H PRN 07/06/19 [Last Taken Unknown] l Acidophil/B Lactis/B Longum [Florajen3 Capsule] 460 mg PEG DAILY 07/06/19 [Last Taken 07/06/19 07:00] Exam - Exam Vital Signs: Vital Signs - Last Taken Temp 37.0 C 07/06/19 13:55 Pulse 101 H 07/06/19 13:55 Resp 14 07/06/19 13:55 BP 93/60 07/06/19 13:55 Pulse Ox 94 07/06/19 13:55 Constitutional: Present: No distress, Somnolent, Middle aged, Looks Older than stated age. Absent: Alert ENT Exam: Present: dry mucous membranes Eye Exam: bilateral eye: PERRL Neck: Present: non-tender, supple. Absent: lymphadenopathy (R), lymphadenopathy (L) Respiratory: Present: rhonchi - Diffuse expiratory rhonchi throughout all lung [place], anteriorly, No wheezing. Absent: crackles Cardiovascular/Chest: Present: normal peripheral pulses, regular rate, rhythm, no edema, no murmur, tachycardia Peripheral Pulses: dorsalis-pedis (R): 1+, dorsalis-pedis (L): 1+ Abdomen: Present: Normal bowel sounds, soft, nontender, obese, other - PEG tube in place, no signs of infection Extremity: Present: no pedal edema Skin Exam: Present: normal color, warm/dry Neurologic: Present: other - She has flexure contractures of bilateral lower extremities and upper extremities. She does not respond to verbal or tactile stimuli. She does not follow directions. He opens and closes her eyes. She closes her eyes when I shine light in them.. Absent: alert, normal mood/affect Appearance: Present: appropriate appearance Eye contact: Present: other - Poor eye contact Thoughts: Absent: normal thought pattern, normal mood /affect Diagnostic Studies: Abnormal Lab Results 07/06/19 07/06/19 07/06/19 Range/Units 10:00 10:00 10:00 RBC 3.50 L (4.2-5.4) M/mm3 Hgb 11.0 L (12.5-16.0) gm/dL Hct 33.6 L (37.0-47.0) % MCH 31.4 H (27-31) pg RDW 14.3 H (11.5-14.0) % Plt Count 116 L (150-450) K/mm3 Immature Gran % (Auto) 1.50 H (0.001-0.429) % Immature Gran # (Auto) 0.13 H (0.000-0.0310) K/mm3 Neutrophils % 77.8 H (42-75.0) % Lymphocytes % 9.8 L (20-51) % Neutrophils # 6.6 H (1.3-6.0) K/mm3 Lymphocytes # 0.83 L (1.5-3.5) k/mm3 Carbon Dioxide 23.2 L (24-32.6) mmol/L Anion Gap 17.8 H (6.8-13.8) mmol/L BUN 29 H D (3-23) mg/dL BUN/Creatinine Ratio 30.2 H (9.0-21.6) Random Glucose 134 H (70-110) mg/dL Lactic Acid, Venous (0.4-2.0) mmol/L Calcium Adj for Albumin 10.5 H (8.4-10.2) mg/dL AST 60 H (0-48) U/L Albumin 2.3 L (3.4-5.0) gm/dl Procalcitonin 16.65 H (0.05-0.50) ng/mL Urine Blood (NEGATIVE) /ul Ur Leukocyte Esterase (NEGATIVE) /ul Urine WBC (0-5) /hpf Ur Epithelial Cells (0-5) /hpf Urine Bacteria (NONE) 07/06/19 07/06/19 Range/Units 10:00 10:00 RBC (4.2-5.4) M/mm3 Hgb (12.5-16.0) gm/dL Hct (37.0-47.0) % MCH (27-31) pg RDW (11.5-14.0) % Plt Count (150-450) K/mm3 Immature Gran % (Auto) (0.001-0.429) % Immature Gran # (Auto) (0.000-0.0310) K/mm3 Neutrophils % (42-75.0) % Lymphocytes % (20-51) % Neutrophils # (1.3-6.0) K/mm3 Lymphocytes # (1.5-3.5) k/mm3 Carbon Dioxide (24-32.6) mmol/L Anion Gap (6.8-13.8) mmol/L BUN (3-23) mg/dL BUN/Creatinine Ratio (9.0-21.6) Random Glucose (70-110) mg/dL Lactic Acid, Venous 2.8 H* (0.4-2.0) mmol/L Calcium Adj for Albumin (8.4-10.2) mg/dL AST (0-48) U/L Albumin (3.4-5.0) gm/dl Procalcitonin (0.05-0.50) ng/mL Urine Blood 5 H (NEGATIVE) /ul Ur Leukocyte Esterase 100 H (NEGATIVE) /ul Urine WBC 5-10 H (0-5) /hpf Ur Epithelial Cells 5-10 H (0-5) /hpf Urine Bacteria 2+ H (NONE) Laboratory Results WBC 8.5 K/mm3 (4.0-10.5) 07/06/19 10:00 RBC 3.50 M/mm3 (4.2-5.4) L 07/06/19 10:00 Hgb 11.0 gm/dL (12.5-16.0) L 07/06/19 10:00 Hct 33.6 % (37.0-47.0) L 07/06/19 10:00 MCV 96.0 fl (78-100) 07/06/19 10:00 MCH 31.4 pg (27-31) H 07/06/19 10:00 MCHC 32.7 g/dl (32-36) 07/06/19 10:00 RDW 14.3 % (11.5-14.0) H 07/06/19 10:00 Plt Count 116 K/mm3 (150-450) L 07/06/19 10:00 MPV 11.9 fl (8-12.5) 07/06/19 10:00 Immature Gran % (Auto) 1.50 % (0.001-0.429) H 07/06/19 10:00 Immature Gran # (Auto) 0.13 K/mm3 (0.000-0.0310) H 07/06/19 10:00 Neutrophils % 77.8 % (42-75.0) H 07/06/19 10:00 Lymphocytes % 9.8 % (20-51) L 07/06/19 10:00 Monocytes % 8.3 % (0.0-9) 07/06/19 10:00 Eosinophils % 2.1 % (0.0-3.0) 07/06/19 10:00 Basophils % 0.5 % (0.0-1.0) 07/06/19 10:00 Nucleated RBC % 0.0 k/mm3 (0-1) 07/06/19 10:00 Neutrophils # 6.6 K/mm3 (1.3-6.0) H 07/06/19 10:00 Lymphocytes # 0.83 k/mm3 (1.5-3.5) L 07/06/19 10:00 Monocytes # 0.7 k/mm3 (0.0-1.0) 07/06/19 10:00 Eosinophils # 0.2 k/mm3 (0.0-0.7) 07/06/19 10:00 Absolute Basophils 0.0 k/mm3 (0.0-0.1) 07/06/19 10:00 Sodium 137 mmol/L (132-142) 07/06/19 10:00 Plasma Sodium 138 mmol/L (130-142) 07/06/19 10:00 Potassium 4.0 mmol/L (3.4-4.6) 07/06/19 10:00 Chloride 100 mmol/L (97-106) 07/06/19 10:00 Carbon Dioxide 23.2 mmol/L (24-32.6) L 07/06/19 10:00 Anion Gap 17.8 mmol/L (6.8-13.8) H 07/06/19 10:00 BUN 29 mg/dL (3-23) H D 07/06/19 10:00 Creatinine 0.96 mg/dL (0.4-1.4) 07/06/19 10:00 Est GFR (Non-Af Amer) 65 mL/min (60-130) D 07/06/19 10:00 BUN/Creatinine Ratio 30.2 (9.0-21.6) H 07/06/19 10:00 Random Glucose 134 mg/dL (70-110) H 07/06/19 10:00 Lactic Acid, Venous 1.5 mmol/L (0.4-2.0) 07/06/19 13:00 Calcium 9.5 mg/dL (7.9-10.9) 07/06/19 10:00 Calcium Adj for Albumin 10.5 mg/dL (8.4-10.2) H 07/06/19 10:00 Total Bilirubin 0.8 mg/dL (0.0-1.1) 07/06/19 10:00 AST 60 U/L (0-48) H 07/06/19 10:00 ALT 31 U/L (19-67) 07/06/19 10:00 Alkaline Phosphatase 135 U/L (50-170) 07/06/19 10:00 C-Reactive Prot, Quant Less than 0.2 mg/dL (0.0-0.9) 07/06/19 10:00 Total Protein 7.7 gm/dL (6.2-8.2) 07/06/19 10:00 Albumin 2.3 gm/dl (3.4-5.0) L 07/06/19 10:00 Procalcitonin 16.65 ng/mL (0.05-0.50) H 07/06/19 10:00 Urine Color Yellow 07/06/19 10:00 Urine Appearance Clear (CLEAR) 07/06/19 10:00 Urine pH 6.0 pH (5.0-7.0) 07/06/19 10:00 Ur Specific [place] <=1.005 SP.GR. (1.005-1.010) 07/06/19 10:00 Urine Protein Negative mg/dL (NEGATIVE) 07/06/19 10:00 Urine Glucose (UA) Negative mg/dL (NEGATIVE) 07/06/19 10:00 Urine Ketones Negative mg/dL (NEGATIVE) 07/06/19 10:00 Urine Blood 5 /ul (NEGATIVE) H 07/06/19 10:00 Urine Nitrate Negative (NEGATIVE) 07/06/19 10:00 Urine Bilirubin Negative mg/dl (NEGATIVE) 07/06/19 10:00 Urine Urobilinogen Normal EU/dl (NORMAL) 07/06/19 10:00 Ur Leukocyte Esterase 100 /ul (NEGATIVE) H 07/06/19 10:00 Urine RBC Trace /hpf (0-5) 07/06/19 10:00 Urine WBC 5-10 /hpf (0-5) H 07/06/19 10:00 Ur Epithelial Cells 5-10 /hpf (0-5) H 07/06/19 10:00 Calcium Oxalate Crystal Trace /hpf (NONE) 07/06/19 10:00 Urine Bacteria 2+ (NONE) H 07/06/19 10:00 Urine Culture Comments Culture to follow 07/06/19 10:00 Influenza Type A Ag Negative (NEGATIVE) 07/06/19 10:01 Influenza Type B Ag Negative (NEGATIVE) 07/06/19 10: Group A Strep Rapid Negative (NEGATIVE) 07/06/19 10:01 Assessment/Plan - Narrative Narrative: 53-year-old female with a past medical history of chronic respiratory failure with tracheostomy and ventilator dependent, muscular dystrophy, normocytic anemia, paralytic strabismus, paroxysmal atrial fibrillation, quadriplegia, recurrent UTI, sick sinus syndrome, status post pacemaker, status post PEG tube, tracheostomy dependent hypothyroidism and hypokalemia [facility] from [facility] with fevers for the past 3 days. She was placed on meropenem at the prison but continued to spike fevers. She was transferred to the emergency department. In the ER she was found to be tacky cardiac, fever of 38 C, no ovidio kocytosis, lactic acid of 8, positive UA, influenza and strep test were negative. Chest x-ray positive for consolidation of the left lung base, effusion with atelectasis versus pneumonia. She is being admitted for ventilator associated pneumonia I will switch her antibiotics from meropenem to Zosyn and vancomycin. Patient is a DO NOT RESUSCITATE. Dr. Blair consulted for management of the ventilator Due to the risk of kidney injury with Zosyn and vancomycin. I will stop the Zosyn and switch to cefepime 2 g IV every 8 hours. Plan #1 continue vancomycin and cefepime. Day 1. #2 Resume home medications for comorbidities #3 Lovenox for VTE prophylaxis #4 CBC and CMP in the morning #5 follow-up urine culture and sensitivity, follow-up blood cultures. - Assessment/Plan (1) Ventilator associated pneumonia Problem: Acute (2) UTI (urinary tract infection) Problem: Acute Qualifiers: Encounter type: initial encounter (3) S/P percutaneous endoscopic gastrostomy (PEG) tube placement Problem: Chronic (4) Tracheostomy dependence Problem: Chronic (5) Quadriplegia Problem: Chronic (6) Muscular dystrophy Problem: Chronic (7) Hypothyroid Problem: Chronic Qualifiers: Hypothyroidism type: acquired (8) Chronic respiratory failure Problem: Chronic (9) Muscular dystrophy Problem: Chronic
[2019-07-06] MEDS: ENOXAPARIN SODIUM 40 MG/0.4 ML SYRG SC SCH (14:51)
[2019-07-06] MEDS ORDERED: CEFEPIME HCL 2 GM in DEXTROSE 5 % IN WATER 100 ML IV SCH ×2 (16:30)
[2019-07-06] MEDS: MEROPENEM 1 GM in NORMAL SALINE 100 ML IV SCH (17:43)
[2019-07-06] MEDS: CHLORHEXIDINE GLUCONATE 15 ML UDC MM SCH (18:12)
[2019-07-06] MEDS ORDERED: POLYETHYLENE GLYCOL 3350 119 GM BTL PEG PRN (19:20)
[2019-07-06] MEDS ORDERED: NORMAL SALINE 3 ML BOX IV PRN (19:20)
[2019-07-06] MEDS ORDERED: ACETYLCYSTEINE 200 MG/ML VIAL IH PRN (19:20)
[2019-07-06] MEDS ORDERED: CALCIUM CARBONATE 500 MG TAB.CHEW PEG PRN (19:20)
[2019-07-06] MEDS ORDERED: HEPARIN SOD.,PORCINE 100 UNITS/ML IV PRN (19:20)
[2019-07-06] MEDS ORDERED: ACETAMINOPHEN PO PRN (19:20)
[2019-07-06] MEDS ORDERED: ACETAMINOPHEN PEG SCH (19:30)
[2019-07-06] MEDS ORDERED: ALBUTEROL SULFATE 2.5 MG/0.5 ML VIAL.NEB IH PRN (20:15)
[2019-07-06] MEDS: ALBUTEROL SULFATE/IPRATROPIUM 3 ML NEBU IH SCH ×2 (20:16→22:55)
[2019-07-06] MEDS ORDERED: ACETAMINOPHEN 160 MG/5 ML LIQUID PEG PRN (20:48)
[2019-07-06] MEDS ORDERED: POLYVINYL ALCOHOL 150 DROP BTL EACHEYE PRN (20:50)
[2019-07-06] MEDS ORDERED: ZINC OXIDE 60 APPL TUBE TP PRN (20:53)
[2019-07-06] MEDS: METOCLOPRAMIDE HCL 10 MG TABLET PEG SCH (21:02)
[2019-07-06] MEDS: AMITRIPTYLINE HCL 10 MG TABLET PEG SCH (21:02)
[2019-07-06] MEDS: tiZANidine HCL 4 MG TABLET PEG SCH (21:02)
[2019-07-06] MEDS: LORATADINE 10 MG TABLET PEG SCH (21:03)
[2019-07-06] MEDS: FLUTICASONE PROPIONATE 120 SPRAY INHALER NS SCH (21:03)
[2019-07-06] MEDS: SACCHAROMYCES BOULARDII 250 MG CAPSULE PEG SCH (21:03)
[2019-07-06] MEDS: CYCLOBENZAPRINE HCL 10 MG TABLET PEG SCH (21:03)
[2019-07-06] MEDS: guaiFENesin 100 MG/5 ML SYRUP PEG SCH (21:04)
[2019-07-06] MEDS: GEMFIBROZIL 600 MG TABLET PEG SCH (21:06)
[2019-07-06] MEDS: CHLORHEXIDINE GLUCONATE MOUTHWASH PO SCH (21:25)
[2019-07-06] MEDS: SODIUM CHLORIDE FOR INHALATION 3 ML VIAL.NEB IH SCH (23:28)
[2019-07-06] MEDS ORDERED: ACETAMINOPHEN 160 MG/5 ML UDC PO ONE ×2 (23:36)
--- NOTE | 2019-07-06 23:43 | CONS ---
[facility] - General Date of Service: 07/06/19 Narrative: Ruthie is a 53 yo female with muscular dystrophy leaving her ventilator dependent on a trilogy device and a current resident at [facility]. History is obtained from review of records as she is reportedly in a vegetative state. She has been having persistent fevers for the past 3 days despite being on Meropenem at [facility]. She had a sputum culture from 5 days ago that is growing ESBL klebsiella pneumonia and pseudomonas. She has not had any reported hypoxic episodes. Chest xray shows left lower lobe pneumonia. She has remained on her chronic ventilator settings without need for adjustment. Source: old records - History of Present Illness Allergies/Adverse Reactions: Allergies No Known Allergies Allergy (Verified 07/06/19 13:57) Home Medications: Home Medications Medication Instructions Recorded Last Taken Acetaminophen 19.5 ml PEG DAILY 02/28/17 07/04/19 11:00 armodafinil 200 mg tablet 100 mg PEG DAILY tab 11/26/17 07/06/19 07:00 chlorhexidine gluconate 0.12 % 15 ml MUCOUS MEMBRANE BID 11/26/17 07/05/19 19:00 mouthwash escitalopram oxalate 5 mg tablet 2.5 mg PEG DAILY tab 11/26/17 07/06/19 07:00 gemfibrozil 600 mg tablet 600 mg PEG BID 11/26/17 07/06/19 07:00 glycopyrrolate 1 mg tablet 1 mg PEG TID 11/26/17 07/06/19 07:00 ipratropium 0.5 mg-albuterol 3 mg 3 ml IH Q4H 11/26/17 07/06/19 06:00 (2.5 mg base)/3 mL nebulization soln cetirizine 10 mg tablet 10 mg PEG HS 06/04/18 07/05/19 19:00 cyclobenzaprine 10 mg tablet 10 mg PEG TID 06/04/18 07/06/19 07:00 levothyroxine 50 mcg capsule 50 mcg PEG .Q0400 06/04/18 07/06/19 04:00 metoclopramide HCl 10 mg tablet 10 mg PEG TID 06/04/18 07/06/19 07:00 omeprazole magnesium 2.5 mg oral 40 mg PEG DAILY 06/04/18 07/06/19 07:00 suspension,delayed release polyethylene glycol 3350 17 1 dose PEG BID PRN g 06/04/18 Unknown gram/dose oral powder tizanidine 2 mg capsule 2 mg PEG TID 06/04/18 07/06/19 07:00 fluticasone propionate 50 1 spray LESIA BID g 07/21/18 07/06/19 07:00 mcg/actuation nasal spray,suspension furosemide 40 mg tablet 40 mg PEG DAILY 07/21/18 07/06/19 07:00 potassium chloride 40 mEq/15 mL 15 ml PEG DAILY 07/21/18 07/06/19 07:00 oral liquid zinc oxide 13 % topical cream 1 applic TP DAILY PRN 07/21/18 07/06/19 acetylcysteine 200 mg/mL (20 %) 3 ml IH BID PRN ml 10/13/18 Unknown solution amitriptyline 10 mg tablet 10 mg PEG HS 10/13/18 07/05/19 19:00 calcium carbonate 200 mg calcium 400 mg PEG TID PRN tab 10/13/18 Unknown (500 mg) chewable tablet cholecalciferol (vitamin D3) 25 1 tab PEG DAILY 10/13/18 07/06/19 07:00 mcg (1,000 unit) tablet guaifenesin 400 mg tablet 400 mg PEG TID tab 10/13/18 07/06/19 07:00 sodium chloride 0.9 % for 3 ml IH HS ml 10/13/18 07/05/19 21:00 nebulization 0.9 % Sodium Chloride [Normal 20 ml IV PRN PRN 07/06/19 Unknown Saline Flush] Acetaminophen [Pain Relief Adult] 19.5 ml PO Q6H PRN 07/06/19 07/06/19 08:54 Albuterol Sulfate 2.5 mg INHALATION .Q2H PRN 07/06/19 Unknown Amino Acids/Protein Hydrolys 30 ml PEG DAILY 07/06/19 07/06/19 07:00 [Pro-Stat Liquid] Atropine Sulfate [Atropine 1% 2 drp SUBLINGUAL .Q1H PRN 07/06/19 Unknown Ophthalmic Solution] Banana Flakes/Tos [Banatrol Plus] 1 ea PEG TID 07/06/19 07/06/19 07:00 Cranberry Fruit [Cranberry] 400 mg PEG BID 07/06/19 07/06/19 07:00 Heparin Sodium,Porcine/Pf [Heparin 5 ml IV PRN PRN 07/06/19 Unknown Flush 10 Units/ml Syr] Meropenem 1 gm IV TID 07/06/19 07/06/19 06:00 Polyvinyl Alcohol/Povidone/Pf 1 ea OPHTHALMIC (EYE) .Q1H PRN 07/06/19 Unknown [Refresh Classic Eye Drops] l Acidophil/B Lactis/B Longum 460 mg PEG DAILY 07/06/19 07/06/19 07:00 [Florajen3 Capsule] Procedures Insertion of Infusion Device into Upper Vein, Percutaneous Approach (01/10/16) Introduction of Other Anti-infective into Peripheral Vein, Percutaneous Approach (01/10/16) Measurement of Arterial Saturation, Peripheral, Percutaneous Approach (12/24/16) Medications - Medications Current Medications: Current Medications Albuterol/Ipratropium (Duoneb 2.5-0.5mg/3ml Soln) 3 ml IH Q4HRT KATHARINE Stop: 08/05/19 23:01 Last Admin: 07/06/19 22:55 Dose: 3 ml Documented by: Amitriptyline HCl (Elavil) 10 mg PEG HS KATHARINE Stop: 08/05/19 21:01 Last Admin: 07/06/19 21:02 Dose: 10 mg Documented by: Chlorhexidine Gluconate (Periogard Oral Rinse 0.12%) 15 ml MM BIDRT KATHARINE Stop: 08/05/19 19:01 Last Admin: 07/06/19 18:12 Dose: 15 ml Documented by: Chlorhexidine Gluconate (Periogard Oral Rinse 0.12%) 15 ml PO BID KATHARINE Stop: 08/05/19 21:01 Last Admin: 07/06/19 21:25 Dose: Not Given Documented by: Cyclobenzaprine HCl (Flexeril) 10 mg PEG TID KATHARINE Stop: 08/05/19 19:31 Last Admin: 07/06/19 21:03 Dose: 10 mg Documented by: Enoxaparin Sodium (Lovenox) 40 mg SC Q24H KATHARINE Stop: 08/05/19 14:31 Last Admin: 07/06/19 14:51 Dose: 40 mg Documented by: Fluticasone Propionate (Flonase) 1 spray NS BID KATHARINE Stop: 08/05/19 21:01 Last Admin: 07/06/19 21:03 Dose: 1 spray Documented by: Gemfibrozil (Lopid) 600 mg PEG BID [facility] Stop: 08/05/19 21:01 Last Admin: 07/06/19 21:06 Dose: Not Given Documented by: Guaifenesin (Robitussin) 400 mg PEG TID [facility] Stop: 08/05/19 20:49 Last Admin: 07/06/19 21:04 Dose: 400 mg Documented by: Meropenem 1 gm/ Sodium (Chloride) 100 mls @ 200 mls/hr IV Q8H [facility]; Protocol Stop: 08/05/19 17:01 Last Infusion: 07/06/19 18:13 Dose: Infused Documented by: Loratadine (Claritin) 10 mg PEG HS [facility] Stop: 08/05/19 21:01 Last Admin: 07/06/19 21:03 Dose: 10 mg Documented by: Metoclopramide HCl (Reglan) 10 mg PEG TID [facility] Stop: 08/05/19 19:31 Last Admin: 07/06/19 21:02 Dose: 10 mg Documented by: Saccharomyces Boulardii (Florastor) 250 mg PEG BID [facility] Stop: 08/05/19 21:01 Last Admin: 07/06/19 21:03 Dose: 250 mg Documented by: Tizanidine HCl (Zanaflex) 2 mg PEG TID [facility] Stop: 08/05/19 20:31 Last Admin: 07/06/19 21:02 Dose: 2 mg Documented by: Review of Systems - Review of Systems Narrative: Unable due to patient condition Physical Examination - Exam Vital Signs: Vital Signs - Last Taken Temp 36.8 C 07/06/19 18:36 Pulse 112 H 07/06/19 22:55 Resp 17 07/06/19 22:55 BP 109/70 07/06/19 18:36 Pulse Ox 97 07/06/19 22:55 O2 Oxygen Delivery Method Vent Constitutional: Present: No distress, Other - Spontaneous eye movement only, without purpose. On chronic ventilator and with feeding tube Eye Exam: bilateral eye: normal inspection Respiratory: Present: no respiratory distress, other - decreased breath sounds in bilateral base Cardiovascular/Chest: Present: no murmur, irregularly irregular Peripheral Pulses: radial (R): 1+, radial (L): 1+ Abdomen: Present: Normal bowel sounds, soft, nontender, nondistended Skin Exam: Present: normal color, warm/dry, no cyanosis - Results and Findings: Narrative: Ruthie is a 53 yo female admitted with evidence of left lower lobe ventilator associated pneumonia with recent sputum culture of ESBL klebsiella pneumonia and pseudomonas who has recently been treated with Meropenem for the last few days and continues to have fever. She is a Chronic ventilator dependent patient secondary to muscular dystrophy. There has been no evidence of hypoxia and her current and home ventilator settings will be continued. There is no evidence of hypoxia or change in baseline mental status, may monitor arterial blood gas prn for vent adjustment prn. Lab/Microbiology results last 24 hrs: Abnormal/Pending Laboratory Last 24 HRS 07/06/19 07/06/19 07/06/19 10:00 10:00 10:00 RBC Hgb Hct MCH RDW Plt Count Immature Gran % (Auto) Immature Gran # (Auto) Neutrophils % Lymphocytes % Neutrophils # Lymphocytes # Carbon Dioxide Anion Gap BUN BUN/Creatinine Ratio Random Glucose Lactic Acid, Venous 2.8 H* Calcium Adj for Albumin AST Albumin Procalcitonin 16.65 H Urine Blood 5 H Ur Leukocyte Esterase 100 H Urine WBC 5-10 H Ur Epithelial Cells 5-10 H Urine Bacteria 2+ H 07/06/19 07/06/19 10:00 10:00 RBC 3.50 L Hgb 11.0 L Hct 33.6 L MCH 31.4 H RDW 14.3 H Plt Count 116 L Immature Gran % (Auto) 1.50 H Immature Gran # (Auto) 0.13 H Neutrophils % 77.8 H Lymphocytes % 9.8 L Neutrophils # 6.6 H Lymphocytes # 0.83 L Carbon Dioxide 23.2 L Anion Gap 17.8 H BUN 29 H D BUN/Creatinine Ratio 30.2 H Random Glucose 134 H Lactic Acid, Venous Calcium Adj for Albumin 10.5 H AST 60 H Albumin 2.3 L Procalcitonin Urine Blood Ur Leukocyte Esterase Urine WBC Ur Epithelial Cells Urine Bacteria - Assessments/Findings (1) Ventilator associated pneumonia Problem: Acute (2) Pseudomonas pneumonia Problem: Acute Qualifiers: Laterality: unspecified laterality Lung location: unspecified part of lung Qualified Code(s): J15.1 - Pneumonia due to Pseudomonas (3) Chronic respiratory failure Problem: Chronic (4) Muscular dystrophy Problem: Chronic (5) Ventilator dependence Problem: Chronic (6) Infection due to ESBL-producing Klebsiella pneumoniae Problem: Acute
[2019-07-07] MEDS: Cranberry 400 MG PEG SCH ×3 (00:08→21:00)
[2019-07-07] MEDS: MEROPENEM 1 GM in NORMAL SALINE 100 ML IV SCH ×3 (00:23→17:32)
[2019-07-07] MEDS ORDERED: HEPARIN SOD.,PORCINE 100 UNITS/ML ONE (01:07)
[2019-07-07] MEDS: ALBUTEROL SULFATE/IPRATROPIUM 3 ML NEBU IH SCH ×6 (02:26→22:28)
[2019-07-07] MEDS: LEVOTHYROXINE SODIUM 50 MCG TABLET PEG SCH (03:19)
[2019-07-07] MEDS: CHLORHEXIDINE GLUCONATE 15 ML UDC MM SCH ×2 (06:00→18:24)
[2019-07-07 07:16] LABS: Hematocrit 31.9 % (37.0-47.0); Hemoglobin 10.4 gm/dL (12.5-16.0); Mean Corpuscular Hemoglobin 31.6 pg (27-31); Mean Corpuscular Hgb Conc 32.6 g/dl (32-36); Mean Platelet Volume 11.7 fl (8-12.5); Neutrophil # 6.5 K/mm3 (1.3-6.0); Platelet Count 123 K/mm3 (150-450); Red Blood Count 3.29 M/mm3 (4.2-5.4); Red Cell Distribution Width 14.4 % (11.5-14.0); White Blood Count 9.8 K/mm3 (4.0-10.5)
[2019-07-07 07:31] LABS: Albumin * 2.2 gm/dl (3.4-5.0); Anion Gap 12.3 mmol/L (6.8-13.8); BUN/Creatinine Ratio 26.7 (9.0-21.6); Bilirubin, Total 0.8 mg/dL (0.0-1.1); Ca. Corrected For Albumin 9.8 mg/dL (8.4-10.2); Calcium * 8.7 mg/dL (7.9-10.9); Carbon Dioxide 27.2 mmol/L (24-32.6); Potassium 3.5 mmol/L (3.4-4.6); Total Protein 7.4 gm/dL (6.2-8.2)
[2019-07-07] MEDS: tiZANidine HCL 4 MG TABLET PEG SCH ×3 (08:19→16:41)
[2019-07-07] MEDS: ESCITALOPRAM OXALATE 10 MG TAB PEG SCH (08:19)
[2019-07-07] MEDS: SACCHAROMYCES BOULARDII 250 MG CAPSULE PEG SCH ×2 (08:19→20:52)
[2019-07-07] MEDS: CYCLOBENZAPRINE HCL 10 MG TABLET PEG SCH ×3 (08:21→16:41)
[2019-07-07] MEDS: ATROPINE SULFATE 150 DROP BTL OP PRN (08:21)
[2019-07-07] MEDS: FUROSEMIDE 40 MG TABLET PEG SCH (08:22)
[2019-07-07] MEDS: METOCLOPRAMIDE HCL 10 MG TABLET PEG SCH ×3 (08:22→16:41)
[2019-07-07] MEDS: CHOLECALCIFEROL 1,000 UNIT CAPSULE PEG SCH (08:22)
[2019-07-07] MEDS: FLUTICASONE PROPIONATE 120 SPRAY INHALER NS SCH ×2 (08:25→20:53)
[2019-07-07] MEDS: POTASSIUM CHLORIDE 40 MEQ/15 ML LIQUID PEG SCH (08:27)
[2019-07-07] MEDS: guaiFENesin 100 MG/5 ML SYRUP PEG SCH ×3 (08:28→16:41)
[2019-07-07] MEDS: GEMFIBROZIL 600 MG TABLET PEG SCH ×2 (08:31→20:52)
[2019-07-07] MEDS: OMEPRAZOLE 2 MG/ML BTL PEG SCH (08:47)
[2019-07-07] MEDS: ACETAMINOPHEN 160 MG/5 ML LIQUID PEG SCH (08:47)
[2019-07-07] MEDS ORDERED: [UNRECOGNIZED DRUG - OTHER] PEG SCH (09:00)
[2019-07-07] MEDS ORDERED: PROTEIN SUPPLEMENT PEG SCH (09:00)
[2019-07-07] MEDS ORDERED: [UNRECOGNIZED DRUG - OTHER] PEG SCH (09:00)
[2019-07-07] MEDS: FLORAJEN PEG SCH (09:42)
[2019-07-07] MEDS: ARMODAFINIL 100 MG PEG SCH (09:42)
[2019-07-07] MEDS: CHLORHEXIDINE GLUCONATE MOUTHWASH PO SCH ×2 (10:42→21:51)
--- NOTE | 2019-07-07 13:52 | PN ---
Subjective - Date and Time Seen Date: 07/07/19 Time: 09:15 Subjective Narrative: Patient is nonverbal. She can follow with her eyes. Objective - Review of Systems Generalized/Overall Review: Reports: Fever Respiratory: Reports: Cough Misc: All systems neg except as marked - Vitals Vitals: Last Vital Signs Temp 36.8 C 07/07/19 10:37 Pulse 104 H 07/07/19 10:37 Resp 23 H 07/07/19 10:37 BP 93/55 07/07/19 10:37 Pulse Ox 92 L 07/07/19 10:37 - Abnormal Lab Findings Abnormal Lab Findings: Abnormal Lab Results 07/07/19 07/07/19 07/07/19 Range/Units 06:30 06:45 06:45 RBC 3.29 L (4.2-5.4) M/mm3 Hgb 10.4 L (12.5-16.0) gm/dL Hct 31.9 L (37.0-47.0) % MCH 31.6 H (27-31) pg RDW 14.4 H (11.5-14.0) % Plt Count 123 L (150-450) K/mm3 Immature Gran % (Auto) 2.40 H (0.001-0.429) % Immature Gran # (Auto) 0.24 H (0.000-0.0310) K/mm3 Neutrophils # 6.5 H (1.3-6.0) K/mm3 Total CO2 (19.0-24.0) mmol/L ABG pH (7.35-7.45) BUN/Creatinine Ratio 26.7 H (9.0-21.6) AST 60 H (0-48) U/L Albumin 2.2 L (3.4-5.0) gm/dl Procalcitonin 11.55 H (0.05-0.50) ng/mL 07/07/19 Range/Units 09:10 RBC (4.2-5.4) M/mm3 Hgb (12.5-16.0) gm/dL Hct (37.0-47.0) % MCH (27-31) pg RDW (11.5-14.0) % Plt Count (150-450) K/mm3 Immature Gran % (Auto) (0.001-0.429) % Immature Gran # (Auto) (0.000-0.0310) K/mm3 Neutrophils # (1.3-6.0) K/mm3 Total CO2 27.0 H (19.0-24.0) mmol/L ABG pH 7.49 H (7.35-7.45) BUN/Creatinine Ratio (9.0-21.6) AST (0-48) U/L Albumin (3.4-5.0) gm/dl Procalcitonin (0.05-0.50) ng/mL - Exam Constitutional: Present: Alert, Cooperative, No distress, Middle aged ENT Exam: Present: hearing grossly normal, other - Tracheostomy in place Neck: Present: non-tender, supple. Absent: lymphadenopathy (R), lymphadenopathy (L) Respiratory: Present: no respiratory distress, no accessory muscle use, rhonchi, No wheezing Cardiovascular/Chest: Present: normal peripheral pulses, regular rate, rhythm, no edema, no murmur Abdomen: Present: Normal bowel sounds, soft, nontender, other - PEG tube in place /Rectal: Present: Other - Piedra catheter in place Extremity: Present: no pedal edema, other - Flexion contractures of all extremities Skin Exam: Present: normal color, warm/dry Neurologic: Present: alert Appearance: Present: appropriate appearance Eye contact: Present: cooperative Thoughts: Present: other - Unable to assess Assessment/Plan Plan Narrative: 53-year-old female with a past medical history of chronic respiratory failure with tracheostomy and ventilator dependent, muscular dystrophy, normocytic anemia, paralytic strabismus, paroxysmal atrial fibrillation, quadriplegia, recurrent UTI, sick sinus syndrome, status post pacemaker, status post PEG tube, tracheostomy dependent hypothyroidism and hypokalemia presents from residential with fevers for the past 3 days. She was placed on meropenem at the residential but continued to spike fevers. She was transferred to the emergency department. In the ER she was found to be tacky cardiac, fever of 38 C, no leukocytosis, lactic acid of 8, positive UA, influenza and strep test were nega tive. Chest x-ray positive for consolidation of the left lung base, effusion with atelectasis versus pneumonia. She is being admitted for ventilator associated pneumonia I will switch her antibiotics from meropenem to Zosyn and vancomycin. Patient is a DO NOT RESUSCITATE. Dr. Blair consulted for management of the ventilator She appears more alert today. She is nonverbal. I spoke with the patient's , Rupinder (common-law), and son Michael yesterday regarding the patient's condition and plan of care. Rupinder is the primary POA and Michael is the secondary POA. Urine culture and blood cultures are negative. She did spike one fever late last night but has not had any fever since. Vitals are stable. I will repeat a prolactin level today to assess for improvement of the infectious process. Plan #1 continue meropenem day 4 #2 Continue with home medications for comorbidities #3 Lovenox for VTE prophylaxis #4 CBC and CMP in the morning - Problems/Diagnosis (1) Ventilator associated pneumonia Problem: Acute (2) UTI (urinary tract infection) Problem: Acute Qualifiers: Encounter type: initial encounter (3) S/P percutaneous endoscopic gastrostomy (PEG) tube placement Problem: Chronic (4) Tracheostomy dependence Problem: Chronic (5) Quadriplegia Problem: Chronic (6) Muscular dystrophy Problem: Chronic (7) Hypothyroid Problem: Chronic Qualifiers: Hypothyroidism type: acquired (8) Chronic respiratory failure Problem: Chronic
[2019-07-07] MEDS: ENOXAPARIN SODIUM 40 MG/0.4 ML SYRG SC SCH (17:30)
[2019-07-07] MEDS: LORATADINE 10 MG TABLET PEG SCH (20:54)
[2019-07-07] MEDS: AMITRIPTYLINE HCL 10 MG TABLET PEG SCH (21:01)
[2019-07-07] MEDS: SODIUM CHLORIDE FOR INHALATION 3 ML VIAL.NEB IH SCH (21:15)
[2019-07-08] MEDS: MEROPENEM 1 GM in NORMAL SALINE 100 ML IV SCH ×2 (02:05→08:29)
[2019-07-08] MEDS: ALBUTEROL SULFATE/IPRATROPIUM 3 ML NEBU IH SCH ×4 (02:55→10:42)
[2019-07-08] MEDS: LEVOTHYROXINE SODIUM 50 MCG TABLET PEG SCH (03:19)
[2019-07-08] MEDS: ATROPINE SULFATE 150 DROP BTL OP PRN (05:32)
[2019-07-08] MEDS: CHLORHEXIDINE GLUCONATE 15 ML UDC MM SCH (06:01)
[2019-07-08 06:47] LABS: Hematocrit 32.2 % (37.0-47.0); Hemoglobin 10.6 gm/dL (12.5-16.0); Mean Cell Volume 96.1 fl (78-100); Mean Corpuscular Hemoglobin 31.6 pg (27-31); Mean Corpuscular Hgb Conc 32.9 g/dl (32-36); Mean Platelet Volume 11.5 fl (8-12.5); Neutrophil # 8.6 K/mm3 (1.3-6.0); Neutrophil % 73.2 % (42-75.0); Platelet Count 166 K/mm3 (150-450); Red Blood Count 3.35 M/mm3 (4.2-5.4); Red Cell Distribution Width 14.3 % (11.5-14.0); White Blood Count 11.7 K/mm3 (4.0-10.5)
[2019-07-08 07:06] LABS: Albumin * 2.2 gm/dl (3.4-5.0); Anion Gap 16.2 mmol/L (6.8-13.8); BUN/Creatinine Ratio 22.1 (9.0-21.6); Bilirubin, Total 0.9 mg/dL (0.0-1.1); Ca. Corrected For Albumin 9.8 mg/dL (8.4-10.2); Calcium * 8.7 mg/dL (7.9-10.9); Carbon Dioxide 23.6 mmol/L (24-32.6); Potassium 3.8 mmol/L (3.4-4.6); Total Protein 7.7 gm/dL (6.2-8.2)
[2019-07-08] MEDS: CYCLOBENZAPRINE HCL 10 MG TABLET PEG SCH (08:07)
[2019-07-08] MEDS: SACCHAROMYCES BOULARDII 250 MG CAPSULE PEG SCH (08:07)
[2019-07-08] MEDS: GEMFIBROZIL 600 MG TABLET PEG SCH (08:07)
[2019-07-08] MEDS: CHOLECALCIFEROL 1,000 UNIT CAPSULE PEG SCH (08:07)
[2019-07-08] MEDS: FUROSEMIDE 40 MG TABLET PEG SCH (08:08)
[2019-07-08] MEDS: METOCLOPRAMIDE HCL 10 MG TABLET PEG SCH (08:08)
[2019-07-08] MEDS: tiZANidine HCL 4 MG TABLET PEG SCH (08:09)
[2019-07-08] MEDS: ESCITALOPRAM OXALATE 10 MG TAB PEG SCH (08:09)
[2019-07-08] MEDS: FLUTICASONE PROPIONATE 120 SPRAY INHALER NS SCH (08:11)
[2019-07-08] MEDS: guaiFENesin 100 MG/5 ML SYRUP PEG SCH (08:12)
[2019-07-08] MEDS: POTASSIUM CHLORIDE 40 MEQ/15 ML LIQUID PEG SCH (08:13)
[2019-07-08] MEDS: ARMODAFINIL 100 MG PEG SCH (08:14)
[2019-07-08] MEDS: Cranberry 400 MG PEG SCH (08:15)
[2019-07-08] MEDS: FLORAJEN PEG SCH (08:15)
[2019-07-08] MEDS ORDERED: ACETAMINOPHEN 160 MG/5 ML UDC PEG PRN (08:34)
[2019-07-08] MEDS: OMEPRAZOLE 2 MG/ML BTL PEG SCH (08:41)
[2019-07-08] MEDS: ACETAMINOPHEN 160 MG/5 ML LIQUID PEG SCH (08:46)
[2019-07-08] MEDS ORDERED: ACETAMINOPHEN 160 MG/5 ML LIQUID PEG SCH (09:00)
--- NOTE | 2019-07-08 09:28 | PN ---
Dictated Progress Note - Date and Time Seen: Date: 07/08/19 Time: 09:26 - Progress Note Narrative: pt non responsive Vital Signs - Last Taken Temp 38.3 C H 07/08/19 07:24 Pulse 116 H 07/08/19 08:08 Resp 25 H 07/08/19 07:24 BP 122/67 07/08/19 08:08 Pulse Ox 93 07/08/19 07:24 Abnormal/Pending Laboratory Last 24 HRS 07/08/19 07/08/19 07/07/19 06:25 06:25 06:30 WBC 11.7 H RBC 3.35 L Hgb 10.6 L Hct 32.2 L MCH 31.6 H RDW 14.3 H Immature Gran % (Auto) 1.90 H Immature Gran # (Auto) 0.22 H Lymphocytes % 15.7 L Neutrophils # 8.6 H Carbon Dioxide 23.6 L Anion Gap 16.2 H BUN/Creatinine Ratio 22.1 H Random Glucose 111 H AST 63 H Albumin 2.2 L Procalcitonin 11.55 H Culture 07/06/19 09:00 Urine Culture - Preliminary Urine,Catheterized Ruling Out Pathogen 07/06/19 14:50 - Final Nares MRSA Negative 07/06/19 10:18 Blood Culture - Preliminary Blood NO GROWTH 24 HOURS 07/06/19 10:00 Blood Culture - Preliminary Blood NO GROWTH 24 HOURS no acute distress trach care being done skin warm and dry abd soft, less distended than yesterday Gtube in place Imp: leaking G tube- resolved distended abd- improved Plan: abd softer today PEG still tightened and not leaking
--- NOTE | 2019-07-08 10:50 | DS ---
Transfer Discharge Summary - Diagnosis(s)/Problems (1) Ventilator associated pneumonia Problem: Acute (2) UTI (urinary tract infection) Problem: Acute (3) S/P percutaneous endoscopic gastrostomy (PEG) tube placement Problem: Chronic (4) Tracheostomy dependence Problem: Chronic (5) Quadriplegia Problem: Chronic (6) Muscular dystrophy Problem: Chronic (7) Hypothyroid Problem: Chronic (8) Chronic respiratory failure Problem: Chronic (9) Infection due to ESBL-producing Klebsiella pneumoniae Problem: Acute (10) Pseudomonas pneumonia Problem: Acute (11) Ventilator dependence Problem: Chronic - Course Description of Stay: 53-year-old female with a past medical history of chronic respiratory failure with tracheostomy and ventilator dependent, muscular dystrophy, normocytic anemia, paralytic strabismus, paroxysmal atrial fibrillation, quadriplegia, recurrent UTI, sick sinus syndrome, status post pacemaker, status post PEG tube, tracheostomy dependent hypothyroidism and hypokalemia presents from group home with fevers for the past 3 days. She was placed on meropenem at the group home but continued to spike fevers. She was transferred to the emergency department. In the ER she was found to be tacky cardiac, fever of 38 C, no leukocytosis, lactic acid of 8, positive UA, influenza and strep test were negative. Chest x-ray positive for consolidation of the left lung base, effusion with atelectasis versus pneumonia. She is being admitted for ventilator associated pneumonia I will switch her antibiotics from meropenem to Zosyn and vancomycin. Patient is a DO NOT RESUSCITATE. Dr. Blair consulted for management of the ventilator She appears more alert today. She is nonverbal. I spoke with the patient's , Rupinder (common-law), and son Michael yesterday regarding the patient's condition and plan of care. Rupinder is the primary POA and Michael is the secondary POA. Blood cultures are negative. Urine culture is really not a pathogen. She had a lot of leakage from her PEG tube and abdominal distention yesterday afternoon. Surgery was consulted and they tighten the tube with improvement of the leakage. Abdominal distention has improved today. She did spike another fever this morning. White blood cell has trended up slightly. Prolactin level has continued to steadily decrease. The respiratory therapist noted that she is having copious amounts of mucus coming out of her trach and oral cavity. She may need a bronchoscopy for further evaluation. We do not perform this test here so she would need to be transferred for higher level of care. Due to her persistent fevers and copious mucus I believe it would be best for the patient to be transferred to [facility]. Her vent settings have remained at her baseline settings from the group home. ABG has been stable. I have spoken with the hospitalist Dr. Frank Gutierrez and he has accepted the patient. I have also spoken with the patient's and medical power of bottom cager, Rupinder and he has consented to the transfer. She will be transferred today to [facility]. Procedures Performed: none - Results and Findings Results and Findings: Laboratory Results - last 24 hr 07/07/19 07/08/19 07/08/19 06:30 06:00 06:25 WBC 11.7 H RBC 3.35 L Hgb 10.6 L Hct 32.2 L MCV 96.1 MCH 31.6 H MCHC 32.9 RDW 14.3 H Plt Count 166 MPV 11.5 Immature Gran % (Auto) 1.90 H Immature Gran # (Auto) 0.22 H Neutrophils % 73.2 Lymphocytes % 15.7 L Monocytes % 6.5 Eosinophils % 2.2 Basophils % 0.5 Nucleated RBC % 0.0 Neutrophils # 8.6 H Lymphocytes # 1.84 Monocytes # 0.8 Eosinophils # 0.3 Absolute Basophils 0.1 Sodium Plasma Sodium Potassium Chloride Carbon Dioxide Anion Gap BUN Creatinine Est GFR (Non-Af Amer) BUN/Creatinine Ratio Random Glucose Calcium Calcium Adj for Albumin Total Bilirubin AST ALT Alkaline Phosphatase Total Protein Albumin Procalcitonin 11.55 H 6.26 H 07/08/19 06:25 WBC RBC Hgb Hct MCV MCH MCHC RDW Plt Count MPV Immature Gran % (Auto) Immature Gran # (Auto) Neutrophils % Lymphocytes % Monocytes % Eosinophils % Basophils % Nucleated RBC % Neutrophils # Lymphocytes # Monocytes # Eosinophils # Absolute Basophils Sodium 138 Plasma Sodium 138 Potassium 3.8 Chloride 102 Carbon Dioxide 23.6 L Anion Gap 16.2 H BUN 17 Creatinine 0.77 Est GFR (Non-Af Amer) 83 BUN/Creatinine Ratio 22.1 H Random Glucose 111 H Calcium 8.7 Calcium Adj for Albumin 9.8 Total Bilirubin 0.9 AST 63 H ALT 30 Alkaline Phosphatase 124 Total Protein 7.7 Albumin 2.2 L Procalcitonin - Medications Medications: Active Medications Acetaminophen (Tylenol 160 Mg/5 Ml Liquid) 624 mg PEG DAILY [facility]ATH[facility]INE Stop: 08/07/19 09:01 Last Admin: 07/08/19 08:56 Dose: Not Given Documented by: Albuterol/Ipratropium (Duoneb 2.5-0.5mg/3ml Soln) 3 ml IH Q4HRT KATHARINE Stop: 08/05/19 23:01 Last Admin: 07/08/19 10:42 Dose: 3 ml Documented by: Amitriptyline HCl (Elavil) 10 mg PEG HS KATHARINE Stop: 08/05/19 21:01 Last Admin: 07/07/19 21:01 Dose: 10 mg Documented by: Artificial Tears (Artificial Tears) 1 drop EACHEYE Q2H PRN PRN Reason: DRY EYES Stop: 08/05/19 20:51 Last Admin: 07/07/19 08:20 Dose: 1 drop Documented by: Atropine Sulfate (Atropine 1% Ophthalmic Solution) 2 drop OP .Q1H PRN PRN Reason: Secretions Stop: 08/05/19 19:21 Last Admin: 07/08/19 05:32 Dose: 2 drop Documented by: Chlorhexidine Gluconate (Periogard Oral Rinse 0.12%) 15 ml MM BIDRT KATHARINE Stop: 08/05/19 19:01 Last Admin: 07/08/19 06:01 Dose: 15 ml Documented by: Cholecalciferol (Vitamin D) 1,000 unit PEG DAILY KATHARINE Stop: 08/06/19 09:01 Last Admin: 07/08/19 08:07 Dose: 1,000 unit Documented by: Cyclobenzaprine HCl (Flexeril) 10 mg PEG TID KATHARINE Stop: 08/05/19 19:31 Last Admin: 07/08/19 08:07 Dose: 10 mg Documented by: Enoxaparin Sodium (Lovenox) 40 mg SC Q24H KATHARINE Stop: 08/05/19 14:31 Last Admin: 07/07/19 17:30 Dose: 40 mg Documented by: Escitalopram Oxalate (Lexapro) 2.5 mg PEG DAILY KATHARINE Stop: 08/06/19 09:01 Last Admin: 07/08/19 08:09 Dose: 2.5 mg Documented by: Fluticasone Propionate (Flonase) 1 spray NS BID KATHARINE Stop: 08/05/19 21:01 Last Admin: 07/08/19 08:11 Dose: 1 spray Documented by: Furosemide (Lasix) 40 mg PEG DAILY [facility] Stop: 08/06/19 09:01 Last Admin: 07/08/19 08:08 Dose: 40 mg Documented by: Gemfibrozil (Lopid) 600 mg PEG BID [facility] Stop: 08/05/19 21:01 Last Admin: 07/08/19 08:07 Dose: 600 mg Documented by: Guaifenesin (Robitussin) 400 mg PEG TID [facility] Stop: 08/05/19 20:49 Last Admin: 07/08/19 08:12 Dose: 400 mg Documented by: Meropenem 1 gm/ Sodium (Chloride) 100 mls @ 200 mls/hr IV Q8H [facility]; Protocol Stop: 08/05/19 17:01 Last Infusion: 07/08/19 08:59 Dose: Infused Documented by: Levothyroxine Sodium (Synthroid) 50 mcg PEG DAILY@0400 [facility] Stop: 08/06/19 04:01 Last Admin: 07/08/19 03:19 Dose: 50 mcg Documented by: Loratadine (Claritin) 10 mg PEG HS [facility] Stop: 08/05/19 21:01 Last Admin: 07/07/19 20:54 Dose: 10 mg Documented by: Metoclopramide HCl (Reglan) 10 mg PEG TID [facility] Stop: 08/05/19 19:31 Last Admin: 07/08/19 08:08 Dose: 10 mg Documented by: Multi-Ingredient Ointment (Zinc Oxide) 1 appl TP DAILY PRN PRN Reason: DESTINY CARE Stop: 08/05/19 20:54 Last Admin: 07/07/19 08:29 Dose: 1 appl Documented by: Armodafinil 100 Mg 100 mg PEG DAILY [facility] Stop: 08/06/19 09:01 Last Admin: 07/08/19 08:14 Dose: Not Given Documented by: Cranberry 400 Mg 400 mg PEG BID [facility] Stop: 08/05/19 21:01 Last Admin: 07/08/19 08:15 Dose: Not Given Documented by: Glycopyrrolate 1 Mg 1 mg PEG TID [facility] Stop: 08/06/19 09:01 Last Admin: 07/08/19 08:15 Dose: Not Given Documented by: Kathryn 3 Capsule (460 Mg) 460 mg PEG DAILY [facility] Stop: 08/06/19 09:01 Last Admin: 07/08/19 08:15 Dose: Not Given Documented by: Omeprazole (Prilosec) 40 mg PEG DAILY [facility] Stop: 08/06/19 09:01 Last Admin: 07/08/19 08:41 Dose: 40 mg Documented by: Potassium Chloride (Potassium Chloride 40 Meq/15ml Liquid) 40 meq PEG DAILY [facility] Stop: 08/06/19 09:01 Last Admin: 07/08/19 08:13 Dose: 40 meq Documented by: Saccharomyces Boulardii (Florastor) 250 mg PEG BID [facility] Stop: 08/05/19 21:01 Last Admin: 07/08/19 08:07 Dose: 250 mg Documented by: Sodium Chloride (Sodium Chloride 0.9% Inhalation Solution) 3 ml IH HS [facility] Stop: 08/05/19 21:01 Last Admin: 07/07/19 21:15 Dose: 3 ml Documented by: Tizanidine HCl (Zanaflex) 2 mg PEG TID [facility] Stop: 08/05/19 20:31 Last Admin: 07/08/19 08:09 Dose: 2 mg Documented by: Discontinued Medications Acetaminophen (Tylenol 160 Mg/5 Ml Liquid) 624 mg PEG DAILY [facility] Stop: 08/06/19 09:01 Last Admin: 07/08/19 08:46 Dose: 624 mg Documented by: Acetaminophen (Tylenol 160 Mg/5 Ml Liquid) 624 mg PEG Q6H PRN PRN Reason: Fever Stop: 08/05/19 20:49 Last Admin: 07/06/19 23:39 Dose: 624 mg Documented by: Chlorhexidine Gluconate (Periogard Oral Rinse 0.12%) 15 ml PO BID [facility] Stop: 08/05/19 21:01 Last Admin: 07/07/19 21:51 Dose: Not Given Documented by: Sodium Chloride (Sodium Chloride 0.9%) 1,000 mls @ 999 mls/hr IV .Q1H1M ONE Stop: 07/06/19 10:55 Last Infusion: 07/06/19 11:26 Dose: Infused Documented by: Piperacillin Sod/Tazobactam (Sod 3.375 gm/ Dextrose/Water) 100 mls @ 25 mls/hr IV Q8H [facility]; Protocol Stop: 08/05/19 13:16 Last Infusion: 07/07/19 00:08 Dose: Infused Documented by: Vancomycin HCl 1 gm/ Dextrose/ (Water) 250 mls @ 140 mls/hr IV Q12H [facility]; Protocol Stop: 08/05/19 13:16 Last Infusion: 07/06/19 16:38 Dose: Infused Documented by: - Disposition Disposition: Short Term Hospital Inpatient Condition: Critical
[2019-07-08] MEDS ORDERED: ZINC OXIDE 60 APPL TUBE TP PRN (12:00)
[2019-07-08] MEDS ORDERED: POLYVINYL ALCOHOL 150 DROP BTL EACHEYE PRN (12:00)
[2019-07-08 12:59] VITALS: BP 103/60
== END 2019-07-08 13:23 | disposition short-term general hospital (02) | DRG 208 ==
LOC: ER 09:35 → MS 12:41
PROVIDERS: ADMIT Internal Medicine; ATTEND Internal Medicine
CPT/HCPCS: 36415; 36600; 71010; 71045; 80053; 81001; 82803; 83605; 84145; 85025; 86140; 87040; 87077; 87081; 87086; 87186; 87400; 87430; 87449; 89220; 93005; 94640; 94664; 99285